=== PATIENT | female | born 1935 | race Caucasian/White ===

== ENCOUNTER → 2016-09-28 | Day surgery (SDC) | payer MEDICARE, OTHER ==
[~2016-09-28] MED LIST: Acetaminophen TAB* 325 MG PO PRN; Buffered Lidocaine 1% SYR 3ML* 3 ML/SYR SYRINGE INTRADERM ONE; Buffered Lidocaine 1% SYR 3ML* 3 ML/SYR SYRINGE ONE; Cyclopentolate 1% OPTH.SOL* 2 ML BTL ONE; Flurbiprofen 0.03% OPTH.SOL* 2.5 ML BTL ONE; Lidocaine 1% MPF* 2 ML VIAL ONE; Midazolam* 1 MG/ML 2 ML VIAL (2 MG) ONE; Neomycin/Polymy/Dex OPHTH.OIN* 3.5 GM ONE; Phenylephrine 2.5% OPTH.SOL* 2 ML BTL ONE; Tetracaine 0.5% OPTH.SOL 4 ML* 1 DROP BTL ONE; Tropicamide 1% OPTH.SOL* BTL ONE; fentaNYL* 50 MCG/ML 2 ML VIAL (100 MCG VIAL) ONE
[2016-09-28 11:18] VITALS: BP 174/59
--- NOTE | 2016-09-29 01:22 | OP ---
DATE OF OPERATION: 09/28/16 [facility] DATE OF : 33 SURGEON: Dr. Nate Murray. AUTOMATIC TYPEWRITER INSPECTOR: None. ANESTHESIOLOGIST: Jeff Garcia MD ANESTHESIA: Topical with intravenous sedation. PRE-OP DIAGNOSIS: Cataract, left eye. POST-OP DIAGNOSIS: Cataract, left eye. OPERATIVE PROCEDURE: Phacoemulsification and cataract extraction with posterior chamber intraocular lens implant, left eye. COMPLICATIONS: None. BLOOD LOSS: None. DESCRIPTION OF PROCEDURE: The patient was brought to the operating room and received a small amount of intravenous sedation. A drop of Tetracaine was placed in her left eye. She was prepped and draped in the usual sterile fashion for ophthalmic surgery and attention was directed to the left eye where a speculum was placed. A paracentesis was created at the 5 o'clock position and 0.1 cc of 1 percent preservative-free Lidocaine was injected into the anterior chamber followed by DisCoVisc. The eye was digitally stabilized while a 2.75 mm keratome was used to create a triplanar clear corneal incision at the 3 o'clock position. A continuous curvilinear capsulorrhexis was created with a cystotome and Utrata forceps. BSS on a cannula was used to hydrodissect the lens from the capsule. Phacoemulsification was performed in a divide-and- conquer technique to create four fragments which were removed. Residual cortical material was removed with irrigation and aspiration. DisCoVisc was used to inflate the capsular bag and an SN60AT 20.5 diopter lens was folded and inserted into the capsular bag. DisCoVisc was removed using irrigation and aspiration. BSS on a cannula was used to hydrate the corneal stroma and seal the wound. At the end of the case the pupil was round and the lens was centered. The eye was of normal pressure and the wound was water tight. The speculum was removed and topical Maxitrol ointment was placed on the surface of the eye. The eye was closed, patched and shielded and the patient was sent to the recovery room in stable condition with post operative instructions and follow-up appointment given. [id number]/CPS #: [id number] MTDD
== END | disposition home or self-care (01) ==
LOC: OREAST 08:46
PROVIDERS: ATTEND Ophthalmology
DX: H25.12 Age-related nuclear cataract, left eye (principal); Z79.84 Long term (current) use of oral hypoglycemic drugs; I10 Essential (primary) hypertension; I11.9 Hypertensive heart disease without heart failure; M19.90 Unspecified osteoarthritis, unspecified site; K21.9 Gastro-esophageal reflux disease without esophagitis; M81.0 Age-related osteoporosis without current pathological fracture; Z79.891 Long term (current) use of opiate analgesic; Z88.8 Allergy status to other drugs, medicaments and biological substances; Z98.41 Cataract extraction status, right eye; Z96.1 Presence of intraocular lens
CPT/HCPCS: A9270-GY; J2250; J3010; V2632

== ENCOUNTER 2019-04-23 16:16 | Inpatient (IN) | payer MEDICARE, OTHER ==
[2019-04-23] MEDS ORDERED: NS 0.9% 1000 ML** 1,000 ML IV ONE ×2 (17:20→19:55)
--- NOTE | 2019-04-23 17:28 | ED ---
Complex/Multi-Sys Presentation - HPI Summary HPI Summary: Patient is a 83 y/o F presenting to ED with complaints of fatigue, nausea, abdominal pain, fever, and "feeling lousy". Patient is a resident of [facility] and is concerned that she "caught the bug" that was going around. Daughter , who is present in the room, notes that a family relation recently developed PNA. Patient was evaluated at [facility] and was noted to have a temp of 102 F. Patient was advised to come to [facility]. In the room, patient denies cough, diarrhea, and vomiting, but, per triage, has been dry heaving. Patient reports "a tad" of sore throat. She states she had a FRIEDMAN which has since resolved. Bilateral ear pain is denied. No dysuria noted. PMHx of diabetes, daughter reports that sugars have been high. Yesterday BG was 270, this morning, it was 247. PMHx of diveritculitis, patient has had 7 inches of colon removed. Hx of pancreatitis. PSHx of appendectomy, tubal ligation, cholecystectomy. Allergy to adhesive tape is reported. Patient states present Sx are dissimilar to her pancreatitis. She is a current non-smoker and does not drink alcohol. - History Of Current Complaint Chief Complaint: EDNauseaVomitDiarrh Time Seen by Provider: 04/23/19 17:02 Hx Obtained From: Patient Onset/Duration: Still Present Timing: Constant Aggravating Factor(s): nothing Alleviating Factor(s): nothing Associated Signs And Symptoms: Positive: Headache, Nausea, Abdominal Pain, Fever , Other - positive - sore throat, fatigue; negative - ear pain. Negative: Cough , Vomiting, Diarrhea, Dysuria - Allergies/Home Medications Allergies/Adverse Reactions: Allergies Allergy/AdvReac Type Severity Reaction Status Date / Time Adhesive Tape Allergy Intermediate ITCHINESS Verified 04/23/19 16:23 Home Medications: Home Medications Cholecalciferol (Vitamin D3) [Vitamin D3] 1,000 unit PO DAILY 04/23/19 [History Confirmed 04/23/19] Fluocinonide 0.05% CREAM(NF) 1 applic TOPICAL BID PRN 04/23/19 [History Confirmed 04/23/19] Hydrocodone/Acetamin 10/325(NF [Meridian 10/325 (NF)] 1 tab PO Q6H PRN 04/23/19 [ History Confirmed 04/23/19] L. Rhamnosus GG/Inulin [Culturelle Probiotics Capsule] 1 cap PO TID 04/23/19 [ History Confirmed 04/23/19] Loperamide HCl [Anti-Diarrheal] 2 mg PO TID PRN 04/23/19 [History Confirmed ] Olmesartan (NF) [Benicar (NF)] 40 mg PO DAILY 04/23/19 [History Confirmed ] Omeprazole (Nf) [Prilosec (NF)] 40 mg PO DAILY 04/23/19 [History Confirmed 04/23] Ondansetron ODT TAB* [Zofran 4 MG Odt TAB*] 4 mg PO Q8H PRN 04/23/19 [History Confirmed 04/23/19] Vitamin B Complex CAP* [B Complex CAP*] 1 cap PO DAILY 04/23/19 [History Confirmed 04/23/19] PMH/Surg Hx/FS Hx/Imm Hx Endocrine/Hematology History: Reports: Hx Diabetes - TYPE II- ON ORAL MEDICATION FOR Cardiovascular History: Reports: Hx Hypertension - ON MEDICATION FOR, Other Cardiovascular Problems/Disorders - HISTORY OF [facility]RYTHMIA'S GI History: Reports: Hx Gastroesophageal Reflux Disease - ON MEDICATION FOR, Hx Hiatal Hernia, Hx Irritable Bowel - after bowel resection and gallstones - has improved with med changes Musculoskeletal History: Reports: Hx Arthritis - OSTEOARTHRITIS- RIGHT SHOULDER , LEFT SHOULDER, Other Musculoskeletal History - OSTEOPOROSIS backs and hips Sensory History: Reports: Hx Cataracts - left eye, Hx Contacts or Glasses - GLASSES Denies: Hx Hearing Aid Opthamlomology History: Reports: Hx Cataracts - left eye, Hx Contacts or Glasses - GLASSES Neurological History: Reports: Hx Nerve Disease - dm neuropathy, Other Neuro Impairments/Disorders - HX OF VERTIGO IN THE PAST- NOW MAYBE ONCE in 3 years Psychiatric History: Reports: Hx Anxiety - ABOUT 30 YEARS AGO, Hx Depression - ABOUT 30 YEARS AGO - Surgical History Surgery Procedure, Year, and Place: TUBAL LIGATION AND [id number]. CHOLECYSTECTOMY-[facility]- FROM PANCREATITIS. BOWEL RESECTION-[facility] [place]. HYSTERECTOMY AND BILATERAL SALPINGOOPHORECTOMY AND CERVIX-[facility] Hx Anesthesia Reactions: No Infectious Disease History: No Infectious Disease History: Denies: Traveled Outside the [place] in Last 30 Days - Family History Known Family History: Positive: Cardiac Disease, Diabetes - Social History Alcohol Use: Rare Substance Use Type: Reports: None Smoking Status (MU): Never Smoked Tobacco Review of Systems Constitutional: Other - positive - "feeling lousy" Positive: Fever, Fatigue Positive: Sore Throat. Negative: Ear Ache Negative: Cough Positive: Abdominal Pain, Nausea. Negative: Vomiting, Diarrhea Negative: dysuria Positive: Headache - since resolbed All Other Systems Reviewed And Are Negative: Yes Physical Exam - Summary Physical Exam Summary: Constitutional: Well-developed, Well-nourished, Alert. (-) Distressed Skin: Warm, Dry HENT: Normocephalic; Atraumatic, Throat Clear Eyes: Conjunctiva normal Neck: Musculoskeletal ROM normal neck. (-) JVD, (-) Stridor, (-) Tracheal deviation Cardio: Rhythm regular, rate normal, Heart sounds normal; Intact distal pulses; The pedal pulses are 2+ and symmetric. Radial pulses are 2+ and symmetric. (-) Murmur Pulmonary/Chest wall: Effort normal. (-) Respiratory distress, (-) Wheezes, (-) Rales Abd: Soft, (+) tenderness over lower abdomen, (-) Distension, (-) Guarding, (-) Rebound Musculoskeletal: (-) Edema Lymph: (-) Cervical adenopathy Neuro: Alert, Oriented x3 Psych: Mood and affect Normal Triage Information Reviewed: Yes Vital Signs On Initial Exam: Initial Vitals Temp Pulse Resp BP Pulse Ox 103.2 F 110 16 130/74 95 04/23/19 16:19 04/23/19 16:19 04/23/19 16:19 04/23/19 16:19 04/23/19 16:19 Vital Signs Reviewed: Yes Diagnostics - Vital Signs Vital Signs Temp Pulse Resp BP Pulse Ox 04/23/19 16:19 103.2 F 110 16 130/74 95 - Laboratory Result Diagrams: 04/23/19 17:49 04/23/19 17:49 Lab Statement: Any lab studies that have been ordered have been reviewed, and results considered in the medical decision making process. - Radiology CXR Radiology Interpretation Completed By: ED Physician Summary of Radiographic Findings: No peribronchial opacities, no segmented PNA, pending official report. Complex Multi-Symp Course/Dx Course Of Treatment: Patient is here with diffuse abdominal pain and fever. Patient has normal WBC and lactate. Platelets low consistent with infecitous etiology. Patient given zosyn epmirically after cultures. CT scan results not received prior to signout. - Diagnoses Provider Diagnoses: Fever, Thrombocytopenia, Tachycardia, Diffuse abdominal pain, Nausea Discharge - Sign-Out/Discharge Documenting (check all that apply): Sign-Out Patient Signing out patient TO: Carlyle Finnegan Patient Received Moderate/Deep Sedation with Procedure: No - Discharge Plan Condition: Stable Referrals: Gabbi Gimenez MD [Primary Care Provider] - - Billing Disposition and Condition Condition: STABLE - Attestation Statements Document Initiated by Martha: Yes Documenting Scribe: CECILY HOWELL Provider For Whom Martha is Documenting (Include Credential): CHINYERE IBANEZ MD Scribe Attestation: CECILY Gregg, scribed for CHINYERE IBANEZ MD on 04/23/19 at 1948. Scribe Documentation Reviewed: Yes Provider Attestation: The documentation as recorded by the CECILY capellan accurately reflects the service I personally performed and the decisions made by , CHINYERE IBANEZ MD Status of Scribe Document: Viewed
[2019-04-23] MEDS ORDERED: Ondansetron INJ* 2 MG/ML VIAL IV ONE (17:58)
[2019-04-23] MEDS ORDERED: Acetaminophen TAB* 325 MG PO ONE (18:05)
[2019-04-23 18:17] LABS: Albumin/Globulin Ratio 1.3 (1-3); BUN/Creatinine Ratio 23.6 (8-20); Calcium 9.1 mg/dL (8.6-10.3); EGFR African American 48.5 (>60); EGFR Non-African American 40.1 (>60); Globulin 3.1 g/dL (2-4); Total Protein 7.1 g/dL (6.4-8.9)
[2019-04-23] MEDS ORDERED: Iodixanol* (CONTRAST) 320 MG/ML 100 ML SDV IV ONE (18:21)
[2019-04-23 18:28] LABS: ABS Lymphocytes 0.2 10^3/ul (1.0-4.8); ABS Monocytes 0.3 10^3/ul (0-0.8); ABS Neutrophils 4.6 10^3/ul (1.5-7.7); Hematocrit 43 % (35-47); Hemoglobin 14.5 g/dL (12.0-16.0); Lymphocyte % 3.5 %; Mean Corpuscular HGB Conc 34 g/dL (31-36); Mean Corpuscular Hemoglobin 30 pg (27-31); Mean Corpuscular Volume 88 fL (80-97); Mean Platelet Volume 10.1 fL (7.4-10.4); Platelet Count 87 10^3/uL (150-450); Red Blood Count 4.86 10^6 /uL (3.70-4.87); Red Cell Distribution Width 14 % (10-15)
[2019-04-23] MEDS ORDERED: Piperacillin/Tazobac ADVAN(*) 3.375 GM in NS 0.9% 100 ML* 100 ML IVPB ONE (18:58)
[2019-04-23] MEDS ORDERED: Insulin REGULAR(*) 1 UNITS UNIT IV PUSH ONE (19:55)
--- NOTE | 2019-04-23 20:11 | ED ---
Progress - Progress Note Progress Note: This pt is a sign out from Dr. No to Dr. Finnegan at shift change [address] A/P. - Results/Orders Results/Orders: CT A/P findings: 1. No acute findings. No evidence of diverticulitis or bowel obstruction. Appendix not visualized, but there is no pericecal inflammatory change to suggest appendicitis. 2. Healing fractures in left ribs 7 through 9, new since prior study but not acute. 3. Large hiatal hernia. 4. Post cholecystectomy and hysterectomy. 5. Other nonemergent findings as above. ED physician has reviewed this report. Re-Evaluation - Re-Evaluation First Eval Re-Evaluation Time: 21:34 Change: Unchanged Comment: Pt was informed of her lab nd CT A/P results. She was also informed about the posibility of admitting to [facility]. She was agreeable. Course/Dx - Course Course Of Treatment: This pt is a sign out from Dr. No to Dr. Finnegan at shift change 189904/23/[address] A/P. Her CT A/P results found the followin. No acute findings. No evidence of diverticulitis or bowel obstruction. Appendix not visualized, but there is no pericecal inflammatory change to suggest appendicitis. 2. Healing fractures in left ribs 7 through 9, new since prior study but not acute. 3. Large hiatal hernia. 4. Post cholecystectomy and hysterectomy. 5. Other nonemergent findings as above. Due to her lab result the pt will be admitted to [facility] by Dr. Lowe, hospitalist, with a Dx of UTI. Dr Lowe called at 2140. - Diagnoses Provider Diagnoses: UTI (urinary tract infection) - Provider Notifications Discussed Care Of Patient With: Barbie Lowe Time Discussed With Above Provider: 21:40 Instructed by Provider To: Admit As Inpatient Discharge - Sign-Out/Discharge Documenting (check all that apply): Patient Departure - admitted, Receiving Sign -Out Receiving patient FROM: Darrell No Patient Received Moderate/Deep Sedation with Procedure: No - Discharge Plan Condition: Stable Disposition: ADMITTED TO [facility] Referrals: Gabbi Gimenez MD [Primary Care Provider] - - Attestation Statements Document Initiated by Scribe: Yes Documenting Scribe: Zeus Leal Provider For Whom Scribe is Documenting (Include Credential): Carlyle Finnegan MD Scribe Attestation: Zeus Gregg, scribed for Carlyle Finnegan MD on 04/23/19 at 2138. Status of Scribe Document: Ready
[2019-04-23 20:54] LABS: Urine Appearance Cloudy; Urine Bacteria Absent (Absent); Urine Bilirubin Negative (Negative); Urine Blood 1+ (Negative); Urine Color Amber; Urine Glucose 3+(>=500 mg/dL) (Negative); Urine Granular Casts Present (Absent); Urine Ketones 1+ (Negative); Urine Nitrite Negative (Negative); Urine Protein 2+(100 mg/dL) (Negative); Urine Red Blood Cell 1+(3-5/hpf) (Absent); Urine Specific Gravity 1.021 (1.010-1.030); Urine Squamous Epithelial Cell Present (Absent); Urine Urobilinogen Negative (Negative); Urine Waxy Casts Present (Absent); Urine White Blood Cell 3+(>20/hpf) (Absent)
[2019-04-23] MEDS ORDERED: Al Hydrox/Mg Hydrox/Simet LIQ* 30 ML UDC PO PRN (22:04)
[2019-04-23] MEDS ORDERED: Dextrose 50% VIAL 50 ml IV PUSH PRN (22:06)
[2019-04-23] MEDS ORDERED: HYDROcodone/ACETAMIN 5-325 MG* 1 TAB PO PRN (22:17)
--- NOTE | 2019-04-23 23:01 | HP ---
HISTORY AND PHYSICAL: ADDENDUM: I went back to talk about a code status with Valentin. She wishes to be a full code [id number]/CPS #: [id number] MTDD
--- NOTE | 2019-04-23 23:18 | HP ---
HISTORY AND PHYSICAL: ADDENDUM NO.1: I went back in to talk with Ms. Hanson about her CT findings. She does not have any soreness in the left chest wall and does not recall any recent falls in the past year. She does think that she hit her left chest against her washing machine about a month ago and did have pain there at that time, but currently has none. She continues to deny cough or sputum; however, she does note that her currently has pneumonia, and she is in and out of [facility] visiting him frequently. Based on this, I will add azithromycin to her antibiotic so that I will treat her with Zithromax and ceftriaxone, and I will check urine antigens for legionella and Streptococcus pneumoniae. I also asked her about outdoor time and exposure to ticks, and she states that she does spend some time outdoors and gardening. ADDENDUM NO.2: I went back to talk about a code status with Ms. Hanson. She wishes to be a full code [id number]/CPS #: [id number]/CPS #: [id number] [facility]
[2019-04-23] MEDS: Acetaminophen TAB* 325 MG PO PRN (23:26)
--- NOTE | 2019-04-23 23:34 | HP ---
TWO ADDENDUMS NOW INCLUDED ON THIS REPORT CC: Radha Wallis NP * HISTORY AND PHYSICAL: DATE OF ADMISSION: 04/23/19 TIME OF ADMISSION: 10 p.m. PRIMARY CARE PHYSICIAN: Radha Wallis NP CHIEF COMPLAINT: Fevers and nausea. HISTORY OF PRESENT ILLNESS: This is an 83-year-old woman with history of diabetes, who presents to the emergency department with 3 days of abdominal discomfort and nausea, it began gradually on Tuesday when she first woke up and she took it easy this weekend, but she noted that she could not eat and she became weak, so she went to her primary care's office today where she was noted to be febrile and was sent to the emergency department for further evaluation. She also notes that at home she felt feverish, but she did not take her temperature. She had no vomiting accompanied with the nausea. She had no diarrhea, though she does have history of chronic diarrhea. She complained of some abdominal bloating. She had no recent travel. She denied a cough. She denied sore throat. She denied changes in her skin or rashes. She denied dysuria or flank pain. PAST MEDICAL HISTORY: Type 2 diabetes, chronic diarrhea, chronic back pain, history of pancreatitis and history of diverticulitis. PAST SURGICAL HISTORY: Shoulder replacement, cholecystectomy, partial colectomy , hysterectomy, tubal ligation, and appendectomy. ALLERGIES: None. FAMILY HISTORY: Both parents have diabetes. SOCIAL HISTORY: She lives alone in [place]. Her has dementia and is in the halfway. She visits him frequently. She does not smoke or use alcohol. REVIEW OF SYSTEMS: As per the HPI. PHYSICAL EXAMINATION GENERAL: Alert, well-appearing elderly lady who is in no distress. She is visiting with her 2 daughters in the room. VITAL SIGNS: Her initial temperature was 103.2, her current temperature is 98.1 ; her initial heart rate was 110, her current heart rate is 83; respiratory rate 17; pulse ox 96% on room air; blood pressure 103/51. HEENT: Pupils are 4 mm bilaterally and reactive to light. Extraocular muscles are intact. She has no nystagmus. Oral mucosa is very dry. Pharynx is unremarkable with no erythema or exudates. NECK: No JVP or adenopathy. CHEST: She is in a regular rate and rhythm with no murmurs. LUNGS: Her lungs are clear bilaterally. ABDOMEN: Soft, nontender, and nondistended in any quadrant. Her liver is not palpable. Her spleen is not palpable and she has no CVA tenderness. EXTREMITIES: No edema, rashes, or ulcers. Her skin is intact. NEUROLOGIC: She is oriented x3. Her strength is 5/5 in upper extremities and 4 +/5 in her lower extremities. Her sensation is intact. Her coordination is intact. DIAGNOSTIC STUDIES/LAB DATA: White blood cells 5.0, hemoglobin 14.5, platelets 87. Sodium 130, potassium 4.0, chloride 94, bicarb 21, anion gap 15, BUN 30, creatinine 1.27, glucose 297. Lactic acid 1.6, ALT 43, AST 67, alk phos 69. Total protein 7.1, lipase 16. Urinalysis; 1+ leukocyte esterase, 3+ white blood cells, nitrites are negative and bacteria is negative. CT abdomen and pelvis: 1. No acute findings. No evidence of diverticulitis or bowel obstruction. Appendix not visualized, but there is no pericecal inflammatory change that suggest appendicitis. 2. Healing fractures in left ribs 7 through 9, new since prior study, but not acute. 3. Large hiatal hernia. 4. Postcholecystectomy and hysterectomy. 5. Other nonemergent findings. Chest x-ray; no effusions, no pneumothorax, no pulmonary edema. ASSESSMENT AND PLAN: This is an 83-year-old female with history of diabetes, who presents to the emergency department with 3 days of fever and nausea and was found to have a negative CT abdomen and pelvis and an equivocal urinalysis. 1. Sepsis. She had a fever and was tachycardic, but her urinalysis does have pyuria, but no nitrites and no bacteria and she does not have classic symptoms of a urinary tract infection nor does she have findings of pyelonephritis; however, she has no other localizing symptoms. Other viral syndromes and tick- borne illnesses are also a consideration and I will add on a tick-borne panel. Blood cultures have been sent in the emergency department and she has received Zosyn. She is hemodynamically stable at this time and I will continue her on maintenance IV fluids. I am putting her on ceftriaxone and we will follow up the micro studies. 2. Thrombocytopenia. This may be related to the sepsis, but may also reflect a tick-borne illness. She had no splenomegaly on her CT abdomen and pelvis. Alternatively, this may be a reflection of a medication side effect. Of note, her platelet count was normal in January 2019. 3. Anion gap metabolic acidosis. She has a normal lactic acid. Her BUN is just mildly elevated. Although, she does have 1+ ketones in her urine, she has no other history of ingestion or other suspicious cause of her anion gap metabolic acidosis. 4. Acute kidney injury. I suspect this is prerenal as she has been unable to eat for the past couple of days. I am continuing her IV fluids. 5. Chronic diarrhea. I am holding her loperamide for now until we have a better understanding of her source of infection. 6. Hypertension. I am holding her ARB. 7. History of chronic pain. Continue hydrocodone p.r.n. 8. Diabetes. Hold the oral medications that she takes at home and put her on sliding scale and fingersticks. 9. DVT prophylaxis: Heparin subcutaneously. 10. Disposition: Admit to OBV. ADDENDUM NO.1: I went back in to talk with Ms. Hanson about her CT findings. She does not have any soreness in the left chest wall and does not recall any recent falls in the past year. She does think that she hit her left chest against her washing machine about a month ago and did have pain there at that time, but currently has none. She continues to deny cough or sputum; however, she does note that her currently has pneumonia, and she is in and out of [facility] visiting him frequently. Based on this, I will add azithromycin to her antibiotic so that I will treat her with Zithromax and ceftriaxone, and I will check urine antigens for legionella and Streptococcus pneumoniae. I also asked her about outdoor time and exposure to ticks, and she states that she does spend some time outdoors and gardening. ADDENDUM NO.2: I went back to talk about a code status with Ms. Hanson. She wishes to be a full code [id number]/CPS #: [id number]/CPS #: [id number]/CPS #: [id number] MTDD
[2019-04-24] MEDS ORDERED: Azithromycin 500 mg/250 mL NS IVPB ONE
[2019-04-24] MEDS: NS 0.9% 1000 ML** 1,000 ML IV SCH ×2 (01:35→11:33)
[2019-04-24] MEDS: Ondansetron INJ* 2 MG/ML VIAL IV PRN ×2 (01:57→19:25)
[2019-04-24] MEDS: Heparin VIAL(*) 5000 UNITS/ML VIAL (FIVE THOUSAND) SUBCUT SCH ×3 (05:32→21:03)
[2019-04-24 06:31] LABS: ABS Lymphocytes 0.1 10^3/ul (1.0-4.8); ABS Monocytes 0.2 10^3/ul (0-0.8); ABS Neutrophils 3.6 10^3/ul (1.5-7.7); Eosinophil % 0.1 %; Hematocrit 38 % (35-47); Hemoglobin 13.1 g/dL (12.0-16.0); Lymphocyte % 3.8 %; Mean Corpuscular HGB Conc 34 g/dL (31-36); Mean Corpuscular Hemoglobin 30 pg (27-31); Mean Corpuscular Volume 88 fL (80-97); Mean Platelet Volume 10.4 fL (7.4-10.4); Platelet Count 59 10^3/uL (150-450); Red Blood Count 4.35 10^6 /uL (3.70-4.87); Red Cell Distribution Width 14 % (10-15); White Blood Count 3.9 10^3/uL (3.5-10.8)
[2019-04-24 06:34] LABS: BUN/Creatinine Ratio 22.9 (8-20); Calcium 7.8 mg/dL (8.6-10.3); EGFR African American 60.4 (>60); EGFR Non-African American 49.9 (>60); Potassium 3.4 mmol/L (3.5-5.0)
[2019-04-24] MEDS ORDERED: Potassium Chlor TAB* 20 MEQ TAB.ER PO ONE (07:29)
[2019-04-24] MEDS: Acetaminophen TAB* 325 MG PO PRN ×2 (07:44→19:24)
[2019-04-24] MEDS: cefTRIAXone(*) 1 GM in NS 0.9% 50 ML* 50 ML IVPB SCH (07:45)
[2019-04-24] MEDS: Insulin LISPRO* 1 UNITS UNIT SUBCUT SCH ×4 (08:24→20:43)
[2019-04-24] MEDS ORDERED: HYDROcodone/ACETAMIN 5-325 MG* 1 TAB PO PRN (15:53)
[2019-04-24 16:26] LABS: Hepatitis C Antibody Negative (Negative)
[2019-04-24 17:41] LABS: Hematocrit 37 % (35-47); Hemoglobin 12.8 g/dL (12.0-16.0); Mean Corpuscular HGB Conc 35 g/dL (31-36); Mean Corpuscular Hemoglobin 31 pg (27-31); Mean Corpuscular Volume 87 fL (80-97); Mean Platelet Volume 10.7 fL (7.4-10.4); Platelet Count 52 10^3/uL (150-450); Red Cell Distribution Width 14 % (10-15); White Blood Count 2.2 10^3/uL (3.5-10.8)
[2019-04-24 19:06] LABS: Hepatitis B Surface Antigen Negative (Negative)
--- NOTE | 2019-04-24 19:18 | PN ---
Subjective Date of Service: 04/24/19 Interval History: Patient denies dysuria, flank pain, abd pain, low back pain. Patient still feels she has a fever today, but feels far improved. She notes she has had nasal congestion since 04/21. Denies cough, dyspnea, chest pain. Objective Active Medications: Acetaminophen (Tylenol Tab*) 650 mg PO Q4H PRN PRN Reason: FEVER/PAIN Hydrocodone Bitart/Acetaminophen ([place] 5-325 Tab*) 1 tab PO Q4H PRN PRN Reason: PAIN Al Hydrox/Mg Hydrox/Simethicone (Maalox Plus*) 30 ml PO Q6H PRN PRN Reason: INDIGESTION Dextrose (Dextrose 50% Vial 50 Ml*) 25 ml IV PUSH .FOR FS < 60 - SS PRN PRN Reason: FS < 60 Heparin Sodium (Porcine) (Heparin Vial(*)) 5,000 units SUBCUT Q8HR [facility] Last Admin: 04/24/19 13:15 Dose: 5,000 units Sodium Chloride (Ns 0.9% 1000 Ml) 1,000 mls @ 125 mls/hr IV PER RATE [facility] Last Admin: 04/24/19 11:33 Dose: 125 mls/hr Ceftriaxone Sodium 1 gm/ (Sodium Chloride) 50 mls @ 100 mls/hr IVPB Q24H [facility] Last Admin: 04/24/19 07:45 Dose: 100 mls/hr Azithromycin (Zithromax 500 Mg/250 Ml) 500 mg in 250 mls @ 250 mls/hr IVPB Q24H [facility] Insulin Human Lispro (Humalog*) 0 units SUBCUT ACHS [facility]; Protocol Last Admin: 04/24/19 17:13 Dose: Not Given Lorazepam (Ativan Tab(*)) 0.5 mg PO BEDTIME PRN PRN Reason: ANXIETY Ondansetron HCl (Zofran Inj*) 4 mg IV Q4H PRN PRN Reason: NAUSEA/VOMITING Last Admin: 04/24/19 01:57 Dose: 4 mg Vital Signs - 8 hr 04/24/19 15:31 Temperature 99.0 F Pulse Rate 86 Respiratory 24 Rate Blood Pressure 124/50 (mmHg) O2 Sat by Pulse 96 Oximetry Oxygen Devices in Use Now: None Appearance: Elderly white female laying in bed appearing in NAD Eyes: PERRLA Ears/Nose/Mouth/Throat: Clear Oropharnyx, Mucous Membranes Moist, - - Nasal turbinates edematous bilaterally Neck: NL Appearance and Movements; NL JVP Respiratory: Symmetrical Chest Expansion and Respiratory Effort, Clear to Auscultation Cardiovascular: NL Sounds; No Murmurs; No JVD, RRR Abdominal: NL Sounds; No Tenderness; No Distention, - - no suprapubic tenderness Extremities: No Edema, No Clubbing, Cyanosis Skin: - - skin warm, dry, intact Neurological: Alert and Oriented x 3, NL Muscle Strength and Tone Result Diagrams: 04/24/19 17:23 04/24/19 06:07 Microbiology and Other Data: Microbiology 04/23/19 17:50 Aerobic Blood Culture - Preliminary Blood Venous No Growth Day 1 04/23/19 17:49 Aerobic Blood Culture - Preliminary Blood Venous No Growth Day 1 Anaerobic Blood Culture - Preliminary No Growth Day 1 04/23/19 22:30 Nasal Screen MRSA (PCR) - Final Nasal Mrsa Not Detected 04/23/19 20:42 Legionella Urinary Antigen - Final Urine Negative Legionella Antigen Streptococcus pneumoniae Ag Screen - Final Negative S. pneumo Antigen Assess/Plan/Problems-Billing Assessment: 83 yo female with PMHx diabetes, chronic diarrhea, and chronic back pain reports with fever of unknown source. - Patient Problems (1) Fever Current Visit: Yes Status: Acute Code(s): R50.9 - FEVER, UNSPECIFIED SNOMED Code(s): 768630216 Comment: -fever and sepsis with unknown origin -fever continued this AM and later improved -urine culture pending (was collected outpatient several hours before reporting to ED), this appears to be likely source as UA is positive -blood cultures negative to date -CXR appears without infiltrate -tick panel and acute hepatitis panel pending -continue ceftiraxone, discontinue azithromycin (2) Thrombocytopenia Current Visit: Yes Status: Acute Code(s): D69.6 - THROMBOCYTOPENIA, UNSPECIFIED SNOMED Code(s): 760171286 Comment: -likely reactive related to infection -continue to trend -will consider heme/onc consult if continues to decrease (3) Diabetes mellitus Current Visit: Yes Status: Acute Code(s): E11.9 - TYPE 2 DIABETES MELLITUS WITHOUT COMPLICATIONS SNOMED Code(s): 03452658 Comment: -takes januvia at home -cont lispro SS while inpatient (4) Hypokalemia Current Visit: Yes Status: Acute Code(s): E87.6 - HYPOKALEMIA SNOMED Code( s): 99792062 Comment: -likely due to large volume of NS -replaced, will recheck tomorrow (5) IFEANYI (acute kidney injury) Current Visit: Yes Status: Acute Code(s): N17.9 - ACUTE KIDNEY FAILURE, UNSPECIFIED SNOMED Code(s): 39792632 Comment: -likely prerenal due to sepsis -resolved today -discontinuing IVF (6) Full code status Current Visit: Yes Status: Acute Code(s): Z78.9 - OTHER SPECIFIED HEALTH STATUS SNOMED Code(s): 457963420 (7) DVT prophylaxis Current Visit: Yes Status: Acute Code(s): Z29.9 - ENCOUNTER FOR PROPHYLACTIC MEASURES, UNSPECIFIED SNOMED Code(s): 738206840 Comment: -heparin -will d/c if platelets fall below 50 Status and Disposition: inpatient pending further workup to evaluate cause of fever
[2019-04-24] MEDS ORDERED: Azithromycin 500 mg/250 ml NS 500 MG/250 ML BAG IVPB SCH (23:00)
[2019-04-25] MEDS: Acetaminophen TAB* 325 MG PO PRN (03:30)
[2019-04-25] MEDS: Heparin VIAL(*) 5000 UNITS/ML VIAL (FIVE THOUSAND) SUBCUT SCH (05:16)
[2019-04-25] MEDS: Insulin LISPRO* 1 UNITS UNIT SUBCUT SCH ×4 (07:36→22:02)
[2019-04-25] MEDS: cefTRIAXone(*) 1 GM in NS 0.9% 50 ML* 50 ML IVPB SCH (07:53)
[2019-04-25 09:13] LABS: Influenza A Molecular NEGATIVE (Negative); Influenza B Molecular NEGATIVE (Negative)
[2019-04-25 09:19] LABS: ABS Lymphocytes 0.3 10^3/ul (1.0-4.8); ABS Monocytes 0.3 10^3/ul (0-0.8); ABS Neutrophils 3.8 10^3/ul (1.5-7.7); Hematocrit 35 % (35-47); Hemoglobin 11.8 g/dL (12.0-16.0); Lymphocyte % 7.3 %; Mean Corpuscular HGB Conc 34 g/dL (31-36); Mean Corpuscular Hemoglobin 30 pg (27-31); Mean Corpuscular Volume 87 fL (80-97); Nucleated Red Blood Cells % 0.2; Platelet Count 48 10^3/uL (150-450); Red Blood Count 3.99 10^6 /uL (3.70-4.87); Red Cell Distribution Width 14 % (10-15); White Blood Count 4.4 10^3/uL (3.5-10.8)
--- NOTE | 2019-04-25 17:15 | PN ---
Subjective Date of Service: 04/25/19 Interval History: Patient reports nausea today and states she has had nausea since admission, though denied yesterday. Feels nausea is worse today. Feels diffuse abdominal discomfort, cannot localize and doesn't describe it as pain. Denies vomiting. Endorses diarrhea, which she has daily at baseline. Believes she has had 3 BMs today. Denies hematochezia. Feels symptomatic fever at time of evaluation. Denies chest pain, difficulty breathing, dysuria. Objective Active Medications: Acetaminophen (Tylenol Tab*) 650 mg PO Q4H PRN PRN Reason: FEVER/PAIN Last Admin: 04/25/19 03:30 Dose: 650 mg Hydrocodone Bitart/Acetaminophen ([place] 5-325 Tab*) 1 tab PO Q4H PRN PRN Reason: PAIN Al Hydrox/Mg Hydrox/Simethicone (Maalox Plus*) 30 ml PO Q6H PRN PRN Reason: INDIGESTION Dextrose (Dextrose 50% Vial 50 Ml*) 25 ml IV PUSH .FOR FS < 60 - SS PRN PRN Reason: FS < 60 Ceftriaxone Sodium 1 gm/ (Sodium Chloride) 50 mls @ 100 mls/hr IVPB Q24H [facility] Last Admin: 04/25/19 07:53 Dose: 100 mls/hr Insulin Human Lispro (Humalog*) 0 units SUBCUT [facility]; Protocol Last Admin: 04/25/19 11:41 Dose: Not Given Lorazepam (Ativan Tab(*)) 0.5 mg PO BEDTIME PRN PRN Reason: ANXIETY Ondansetron HCl (Zofran Inj*) 4 mg IV Q4H PRN PRN Reason: NAUSEA/VOMITING Last Admin: 04/24/19 19:25 Dose: 4 mg Vital Signs - 8 hr 04/25/19 04/25/19 09:54 12:11 Temperature 98.0 F Pulse Rate 84 Respiratory 18 24 Rate Blood Pressure 119/44 (mmHg) O2 Sat by Pulse 96 Oximetry Oxygen Devices in Use Now: None Appearance: elderly white female laying in hospital bed appearing diaphoretic but in NAD Eyes: No Scleral Icterus, PERRLA Ears/Nose/Mouth/Throat: Mucous Membranes Moist, - - no maxillary or frontal sinus tenderness to palpation Neck: NL Appearance and Movements; NL JVP Respiratory: Symmetrical Chest Expansion and Respiratory Effort, Clear to Auscultation Cardiovascular: NL Sounds; No Murmurs; No JVD, RRR Abdominal: - - normoactive BS [id number]; diffusely mildly tender, no rebound tenderness or guarding; abd is soft Extremities: No Edema, No Clubbing, Cyanosis Skin: No Rash or Ulcers, - - no wounds noted after extensive skin check Neurological: Alert and Oriented x 3, NL Muscle Strength and Tone Result Diagrams: 04/25/19 08:21 04/24/19 06:07 Microbiology and Other Data: Microbiology 04/23/19 17:50 Aerobic Blood Culture - Preliminary Blood Venous No Growth Day 1 04/23/19 17:49 Aerobic Blood Culture - Preliminary Blood Venous No Growth Day 1 Anaerobic Blood Culture - Preliminary No Growth Day 1 04/23/19 22:30 Nasal Screen MRSA (PCR) - Final Nasal Mrsa Not Detected 04/23/19 20:42 Legionella Urinary Antigen - Final Urine Negative Legionella Antigen Streptococcus pneumoniae Ag Screen - Final Negative S. pneumo Antigen Assess/Plan/Problems-Billing Assessment: 83 yo female with PMHx diabetes, chronic diarrhea, and chronic back pain reports with fever of unknown source. - Patient Problems (1) Fever Current Visit: Yes Status: Acute Code(s): R50.9 - FEVER, UNSPECIFIED SNOMED Code(s): 677217477 Comment: -fever and sepsis with unknown origin -fever repeated overnight, has been afebrile during the day today but diaphoretic -urine culture was collected outpatient several hours before reporting to ED at PCP office, results today demonstrate negative culture -blood cultures negative to date -CRP elevated to 202.78 -CXR appears without infiltrate, will order chest CT as further described below -acute hepatitis negative, influenza negative -possible other source of infection is sinusitis but this is more likely viral and very low on my differential -tick panel pending -continue ceftiraxone, azithromycin (2) Nausea Current Visit: Yes Status: Acute Code(s): R11.0 - NAUSEA SNOMED Code(s): 083811373 Comment: -pt reports nausea today which is relieved with zofran, associated with abdominal discomfort; continue prn zofran -patient had CT abd/pelvis with PO and IV contrast at admission, does not have evidence of source of infection; hiatal hernia is noted -will order CT chest as perhaps hiatal hernia could cause aspiration pneumonia, which would not be covered by current abx (3) Thrombocytopenia Current Visit: Yes Status: Acute Code(s): D69.6 - THROMBOCYTOPENIA, UNSPECIFIED SNOMED Code(s): 683873445 Comment: -likely reactive related to infection -decreased to 48 today, d/c'd heparin -also with neutropenia overnight, which has resolved this morning; consulted heme/onc nonetheless and appreciate input considering fever of unknown origin (4) Diabetes mellitus Current Visit: Yes Status: Acute Code(s): E11.9 - TYPE 2 DIABETES MELLITUS WITHOUT COMPLICATIONS SNOMED Code(s): 48637627 Comment: -takes januvia at home -cont lispro SS while inpatient (5) IFEANYI (acute kidney injury) Current Visit: Yes Status: Acute Code(s): N17.9 - ACUTE KIDNEY FAILURE, UNSPECIFIED SNOMED Code(s): 69168814 Comment: -likely prerenal due to sepsis -resolved today -discontinuing IVF (6) Full code status Current Visit: Yes Status: Acute Code(s): Z78.9 - OTHER SPECIFIED HEALTH STATUS SNOMED Code(s): 855235857 (7) DVT prophylaxis Current Visit: Yes Status: Acute Code(s): Z29.9 - ENCOUNTER FOR PROPHYLACTIC MEASURES, UNSPECIFIED SNOMED Code(s): 527138713 Comment: -d/c heparin -SCDs Status and Disposition: inpatient pending further workup to evaluate cause of fever
[2019-04-25] MEDS: Ondansetron INJ* 2 MG/ML VIAL IV PRN ×2 (17:20→22:04)
[2019-04-25] MEDS ORDERED: Azithromycin TAB* 250 MG PO SCH (18:00)
[2019-04-25 19:11] LABS: Hematocrit 37 % (35-47); Hemoglobin 12.9 g/dL (12.0-16.0); Mean Corpuscular HGB Conc 35 g/dL (31-36); Mean Corpuscular Hemoglobin 30 pg (27-31); Mean Corpuscular Volume 87 fL (80-97); Mean Platelet Volume 11.8 fL (7.4-10.4); Platelet Count 37 10^3/uL (150-450); Red Blood Count 4.29 10^6 /uL (3.70-4.87); Red Cell Distribution Width 15 % (10-15); White Blood Count 3.9 10^3/uL (3.5-10.8)
[2019-04-25] MEDS: LORazepam TAB(*) 0.5 MG PO PRN (22:03)
[2019-04-26] MEDS: Acetaminophen TAB* 325 MG PO PRN ×2 (02:49→19:33)
--- NOTE | 2019-04-26 03:15 | CONS ---
MEDICAL ONCOLOGY/HEMATOLOGY CONSULTATION NOTE: DATE OF CONSULT: 04/25/19 REASON FOR CONSULT: Thrombocytopenia. HISTORY OF PRESENT ILLNESS: Ashley Hanson is an 83-year-old female who presented to the emergency room after a couple of weeks of feeling more poorly with some intermittent nausea and potentially fever going back over that period of time. She has had somewhat more abdominal bloating. These symptoms worsened on last Tuesday, 2 days prior to admission. She was very weak, had difficulty eating and significant nausea. She did not take her temperature at home, but since arrival at the hospital, has had fevers as high as 102 to 103. There is no associated diarrhea. She denies any cough or shortness of breath. PAST MEDICAL HISTORY: Diabetes mellitus, chronic diarrhea, chronic back pain, history of pancreatitis. PAST SURGICAL HISTORY: Status post shoulder replacement, status post cholecystectomy, status post partial colectomy, status post hysterectomy, status post appendectomy. Shoulder surgery was about 18 months ago. Abdominal surgeries are all at the same time and were approximately 10 years ago. FAMILY HISTORY: Both parents with diabetes. Two daughters with breast cancer. SOCIAL HISTORY: The patient lives alone in [place]. Her had lived with her until fairly recently, but currently is in a custodial with dementia. No alcohol or tobacco. REVIEW OF SYSTEMS: No significant bleeding problems, specifically no epistaxis , gum bleeds, nosebleeds, blood in the urine or stool. No significant petechiae. No significant ecchymosis. PHYSICAL EXAM: Vital Signs: Highest temperature since in the hospital 103.2 on arrival, 102.3 over night last night, currently 99.2. Blood pressure 124/48 , pulse 95, O2 saturation 95% on room air. HEENT: PERRL, EOMI. No erythema or exudates. No scleral icterus. No palpable cervical, supraclavicular, or axillary adenopathy. Lungs: Clear. Heart: 1-2/6 systolic ejection murmur. Abdomen: Soft and nontender with mild bilateral lower quadrant tenderness. No guarding or rebound. No masses or organomegaly. Extremities: No edema. Neurological Exam: Without focal deficits. Back: No CVA or spinal tenderness. DIAGNOSTIC STUDIES/LAB DATA: CBC, currently with white count of 3900 and having been in this range throughout the hospitalization, having been 5000 on admission and similar values concurrent since then other one reported value of 2200 at 7:30 p.m., which was 4400 this morning. Differential includes mostly neutrophils on review of the peripheral smear, no early forms are noted. H and H have been stable at 37/12.9; platelet count on admission was 87,000 falling to 59, 52, and then 48 this morning and at that time of this visit is now reported to be 37. On peripheral smear, there is no giant platelets, there is no platelet clumping. Chemistry studies otherwise sodium 133, potassium 3.4, chloride 102, bicarb 21, BUN/creatinine 24/1.05, glucose 146. Normal LFTs except for the mildly elevated AST at 67 having been normal as recently as January of this year. CT scan of the chest revealed a large hiatal hernia and may be some atelectasis/ small infiltrate at the bases, but no masses, no adenopathy. IMPRESSION AND PLAN: Overall, she feels slightly better than on admission, but still having fevers and still having some nausea. Platelet count has fallen significantly since admission. She did receive heparin and her platelet count was in the 80s on arrival. Then, this was stopped shortly thereafter and she reports not having been hospitalized since her orthopedic surgery 18 months ago and never having had any problems with heparin or other medications, never had any thrombocytopenia. This appears essentially isolated thrombocytopenia. It is not pseudothrombocytopenia as there is no platelet clumping noted. Most likely causes would include potentially: 1. Primary immune thrombocytopenia. 2. A drug-induced thrombocytopenia. This could be due to her antibiotics, although she was already with a low platelet count of 87 on admission. 3. Infection is one of the more common causes of thrombocytopenia even without disseminated intravascular coagulation or sepsis. In addition, hepatic reasons , immunologic reasons, B12 deficiency, alcoholism, and liver via hypersplenism were all fairly common causes of thrombocytopenia. In addition to this, the possibility of primary bone marrow process such as myelodysplasia, paroxysmal nocturnal hemoglobinuria, aplastic anemia, or infiltration of the marrow with a cancer, lymphoma, leukemia need to all be considered. She denies any herbs or supplements, which she could have taken most recently; specifically denies quinine-containing beverages. Workup will include further look into infection, trying to limit any antibiotic that she is on. For completeness sake, a PF4 will be sent, but as noted above, her platelet count was already low prior to starting heparin. She is currently off it and platelet count has continued to fall. Workup for DIC will include D-dimer, fibrinogen, PT, PTT, and a thrombin time. If her platelet count continues to fall, a bone marrow biopsy will be necessary. Suggestion of idiopathic thrombocytopenic purpura would be present if there are adequate to elevated megakaryocytes present, ruling out primary bone marrow process would also be important in the setting of fever of unknown origin. [id number]/[facility] #: [id number] [facility]
[2019-04-26] MEDS: Ondansetron INJ* 2 MG/ML VIAL IV PRN ×2 (03:55→19:33)
[2019-04-26] MEDS ORDERED: NS 0.9% 1000 ML/HR X 1 BAG (TOTAL 1000 ML) IV ONE (05:45)
[2019-04-26] MEDS ORDERED: Vancomycin per Pharmacy* NOTE FOLLOW UP PRN (06:19)
[2019-04-26] MEDS: Cefepime 1 GM in Dextrose(*) 1 GM/50 ML q12h (Duplex) IV SCH ×2 (06:39→18:14)
[2019-04-26] MEDS ORDERED: NS 0.9% 1000 ML** 1,000 ML IV SCH ×2 (06:45→10:30)
[2019-04-26 06:52] LABS: Activated Partial Thrombo Time 29.3 seconds (26.0-38.0); Fibrinogen 289.6 mg/dL (110.8-404.3); INR 0.94 (0.82-1.09)
[2019-04-26 06:57] LABS: ABS Lymphocytes 0.7 10^3/ul (1.0-4.8); ABS Monocytes 0.4 10^3/ul (0-0.8); ABS Neutrophils 4.8 10^3/ul (1.5-7.7); Eosinophil % 0.1 %; Hematocrit 35 % (35-47); Hemoglobin 12.2 g/dL (12.0-16.0); Lymphocyte % 11.7 %; Mean Corpuscular HGB Conc 35 g/dL (31-36); Mean Corpuscular Hemoglobin 30 pg (27-31); Mean Corpuscular Volume 87 fL (80-97); Nucleated Red Blood Cells % 0.1; Red Blood Count 4.04 10^6 /uL (3.70-4.87); Red Cell Distribution Width 14 % (10-15); White Blood Count 5.8 10^3/uL (3.5-10.8)
[2019-04-26] MEDS ORDERED: Vancomycin(*) 1,250 MG IV x ONCE IVPB ONE ×2 (07:00)
[2019-04-26] MEDS ORDERED: NS 0.9% IV ONE (07:00)
[2019-04-26 07:02] LABS: INR 1.02 (0.82-1.09)
[2019-04-26 07:11] LABS: Albumin 2.6 g/dL (3.2-5.2); BUN/Creatinine Ratio 17.1 (8-20); Calcium 7.5 mg/dL (8.6-10.3); EGFR African American 41.3 (>60); EGFR Non-African American 34.1 (>60); Globulin 2.6 g/dL (2-4); Potassium 3.5 mmol/L (3.5-5.0); Total Bilirubin 0.7 mg/dL (0.2-1.0); Total Protein 5.2 g/dL (6.4-8.9)
[2019-04-26 07:25] LABS: Mean Platelet Volume 12.3 fL (7.4-10.4); Platelet Count 40 10^3/uL (150-450)
--- NOTE | 2019-04-26 07:31 | PN ---
Progress Note - Progress Note Date of Service: 04/26/19 Note: CAT call at 0605. Pt found to be hypoxic to 84% on RA. Other vitals being obtained when I arrived and revealed the patient to be tachycardic and hypotensive with a systolic in the 80's. IVF changed from 75ml/hr to 999ml/hr. Code sepsis called (please see separate sepsis documentation). Lab showed and stated they were unable to get all of the labs needed. [employer] [place] present and asked to obtain labs under US and to place a second line. About 10min into the bolus her BP was 65/43. Decision to transfer pt to ICU immediately was made. Attempts were continued to obtain labs BC drawn at just about 45min after the call of code sepsis, cefepime started. Stopped ceftriaxone /azithromycin, start cefepime and vanco for broader coverage. Second set of BC still need to be obtained. pCXR and urinalysis pending. On exam Ashley appeared to be lethargic but she responds to voice, answering questions appropriately and following commands. She is diaphoretic and cool in the extremities. Rectal temp 103.8F. Cardiac exam revealed mild tachycardia and slight irregularity in rhythm. Lungs CTA anteriorly and at the lateral bases. Abd soft, NT, ND; on rolling pt to get temp pt was found to have a dark brown mushy stool. As above, transfer the patient to the ICU, STAT pCXR, UA, vanco and cefepime started. After settling in ICU pt remains hypotensive and clearly in rapid afib. Start levophed at 5mcg/min. Will administer digoxin 0.25mg IVx1 to see if we can slow the rapid afib.
--- NOTE | 2019-04-26 07:32 | PN ---
Sepsis Event Evaluation Date of Evaluation: 04/26/19 Time of Evaluation: 06:05 Current Stage of Sepsis: Septic Shock Vital Signs - Last 12 Hours: Vital Signs - 12 hr Temp Pulse Resp BP Pulse Ox 04/26/19 05:45 103.5 F 160 24 65/43 84 04/26/19 04:06 98.4 F 04/26/19 03:15 102 F 04/26/19 02:43 103.0 F 101 20 149/56 94 04/26/19 00:26 24 04/25/19 22:48 99.1 F 93 24 135/57 95 04/25/19 22:03 24 04/25/19 20:13 98.6 F 04/25/19 20:00 16 Lactic Acid: 04/23/19 04/26/19 17:49 06:45 Lactic Acid 1.6 3.4 H* - Cardiopulmonary Exam Capillary Refill: Immediate Respiratory: Symmetrical Chest Expansion and Respiratory Effort, Clear to Auscultation Cardiovascular: NL Sounds; No Murmurs; No JVD, No Edema, - - irregularly irregular, tachycardic - Peripheral Pulse Exam Radial Pulses: Bilateral Normal - Skin Exam Skin Exam: Diaphoretic - Kris Coma Scale Best Eye Response: 3 - To Speech Best Motor Response: 6 - Obeys Commands Best Verbal Response: 5 - Oriented Coma Scale Total: 14 Assess/Plan/Problems-Billing Assessment: 83 yo female with PMHx diabetes, chronic diarrhea, and chronic back pain reports with fever of unknown source. Status and Disposition: inpatient pending further workup to evaluate cause of fever
[2019-04-26] MEDS ORDERED: Norepinephrine 16MCG/ML IVPRE* 4,000 MCG/250 ML BAG IV SCH (08:00)
[2019-04-26] MEDS: Insulin LISPRO* 1 UNITS UNIT SUBCUT SCH ×4 (08:53→20:49)
[2019-04-26] MEDS ORDERED: Amiodarone 150 MG IVPREMIX* 150 MG/100 ML BAG IV ONE (10:29)
[2019-04-26] MEDS ORDERED: Amiodarone 360 MG IVPREMIX* 360 MG/200 ML BAG IV ONE (10:39)
[2019-04-26 10:56] LABS: Urine Appearance Cloudy; Urine Bacteria Absent (Absent); Urine Bilirubin Negative (Negative); Urine Blood 2+ (Negative); Urine Color Yellow; Urine Glucose 2+(150 mg/dL) (Negative); Urine Ketones 1+ (Negative); Urine Nitrite Negative (Negative); Urine Protein 1+(30 mg/dL) (Negative); Urine Red Blood Cell 3+(>10/hpf) (Absent); Urine Specific Gravity 1.014 (1.010-1.030); Urine Squamous Epithelial Cell Present (Absent); Urine Urobilinogen Negative (Negative); Urine White Blood Cell 1+(6-10/hpf) (Absent)
[2019-04-26] MEDS ORDERED: NS 0.9% w/ 40 Meq KCL 1000 ML* 1,000 ML IV SCH (11:00)
--- NOTE | 2019-04-26 11:01 | CONSULT ---
Consult Consult: Consultation Note -- Critical Care Requesting Physician: Dr Yennifer Javier Reason for consult: severe sepsis Limitations in history/physical: none Date of consult: 04/26/2019 HPI: 83y F w/pmhx of DM, HTN, chronic diarrhea, ?past Afib episode in past, chronic back pain; admitted 04/23 for complaints of nausea and fever in rehab. States she had no abd pain, but only nausea. chronic diarrhea and more watery now. She felt weak+. Family states she gets weak moving around. No swelling in legs or abd, no sig SOB/cp/palpitations. Initial CT abd/pelvis demonstrated no acute findings, CXR withotu pulm congestion. She was admitted with sepsis workup given fever 103, tachycardia 110, BP low 100s. She was given cefepime/ vanco for unclear source of sepsis. This morning 04/26 she was febrile 103, new tachycardia 160s with new afib, BP 60s, given IVF bolus, sepsis protocol started , no resp distress. She is in bed now, BP upper 90s, HR 150s, awake/alert, no distress. Noted LA 3.4 this morning. Moved to ICU but not requiring pressors currently. ROS: negative except for pertinent positives mentioned above. PMHx: DM, HTN, chronic diarrhea, ?past Afib episode in past, chronic back pain PSHx: left shoulder replacement, cholecystectomy, partial colectomy 2/2 to diverticulitus, hysterectomy, appendectomy Family History: DM both parents Social History: Alcohol-none, Smoking-none, Drug use-none; family- in NH for Dementia; she lives by herself and takes care of herself. Allergies: NKDA Home Medications: Glimepiride (NF) 4 mg PO QAM 03/18/15 [History Confirmed 04/23/19] Ibuprofen TAB* [Advil TAB*] 200 mg PO BID PRN 03/18/15 [History Confirmed ] LORazepam TAB(*) [Ativan TAB(*)] 0.5 mg PO BEDTIME PRN 03/18/15 [History Confirmed 04/23/19] SitaGLIPtin (NF) [Januvia (NF)] 100 mg PO QAM 03/18/15 [History Confirmed ] Cholecalciferol (Vitamin D3) [Vitamin D3] 1,000 unit PO DAILY 04/23/19 [History Confirmed 04/23/19] Fluocinonide 0.05% CREAM(NF) 1 applic TOPICAL BID PRN 04/23/19 [History Confirmed 04/23/19] Hydrocodone/Acetamin 10/325(NF [[place] 10/325 (NF)] 1 tab PO Q6H PRN 04/23/19 [ History Confirmed 04/23/19] L. Rhamnosus GG/Inulin [Culturelle Probiotics Capsule] 1 cap PO TID 04/23/19 [ History Confirmed 04/23/19] Loperamide HCl [Anti-Diarrheal] 2 mg PO TID PRN 04/23/19 [History Confirmed ] Olmesartan (NF) [Benicar (NF)] 40 mg PO DAILY 04/23/19 [History Confirmed ] Omeprazole (Nf) [Prilosec (NF)] 40 mg PO DAILY 04/23/19 [History Confirmed 04/23] Ondansetron ODT TAB* [Zofran 4 MG Odt TAB*] 4 mg PO Q8H PRN 04/23/19 [History Confirmed 04/23/19] Vitamin B Complex CAP* [B Complex CAP*] 1 cap PO DAILY 04/23/19 [History Confirmed 04/23/19] Tele: rapid afib Vitals: Vital Signs Temp 101.1 F 04/26/19 08:40 Pulse 164 04/26/19 08:40 Resp 31 04/26/19 08:40 BP 65/43 04/26/19 08:40 Pulse Ox 97 04/26/19 08:40 Intake & Output 04/25/19 04/26/19 04/26/19 18:59 06:59 18:59 Intake Total 925 150 62 Output Total 500 Balance 925 150 -438 Intake: IV Fluids 30 0 62 ABX - AZITHROMYCIN 0 Cefepime 62 Ceftriaxone 0 NS 30 0 IVPB 55 150 ABX - AZITHROMYCIN 0 Ceftriaxone 55 0 NS 150 Oral 840 0 Output: Maguire 500 Other: Estimated Void Large Date of Last Bowel [id number] Movement # Bowel Movements 2 1 Estimated Stool Amount Large Medium # Voids 3 O2/Vent: RA Infusions: NS Current Medications: Acetaminophen (Tylenol Tab*) 650 mg PO Q4H PRN PRN Reason: FEVER/PAIN Last Admin: 04/26/19 02:49 Dose: 650 mg Hydrocodone Bitart/Acetaminophen ([place] 5-325 Tab*) 1 tab PO Q4H PRN PRN Reason: PAIN Al Hydrox/Mg Hydrox/Simethicone (Maalox Plus*) 30 ml PO Q6H PRN PRN Reason: INDIGESTION Dextrose (Dextrose 50% Vial 50 Ml*) 25 ml IV PUSH .FOR FS < 60 - SS PRN PRN Reason: FS < 60 Cefepime HCl (Maxipime 1 Gm In Dextrose Duplex (*)) 1 gm in 50 mls @ 100 mls/ hr IV Q12H JOSE Last Admin: 04/26/19 06:39 Dose: 100 mls/hr Norepinephrine Bitartrate (Levophed 16 Mcg/Ml Premix*) 4,000 mcg in 250 mls @ 18.75 mls/hr IV .INITIAL RATE JOSE; Protocol Vancomycin HCl 750 mg/ Sodium (Chloride) 250 mls @ 166.667 mls/hr IVPB Q12H JOSE Potassium Chloride/Sodium Chloride (Ns 0.9% W/ 40 Meq Kcl 1000 Ml*) 1,000 mls @ 75 mls/hr IV PER RATE JOSE Amiodarone HCl (Nexterone Drip*) 150 mg in 100 mls @ 600 mls/hr IV ONCE ONE Stop: 04/26/19 10:38 Amiodarone HCl (Nexterone 360 Mg/200 Ml Ivpremix*) 360 mg in 200 mls @ 33.333 mls/hr IV ONCE ONE Stop: 04/26/19 16:28 Amiodarone HCl (Nexterone 360 Mg/200 Ml Ivpremix*) 360 mg in 200 mls @ 16.667 mls/hr IV .SEE PROTOCOL JOSE Insulin Human Lispro (Humalog*) 0 units SUBCUT ACHS JOSE; Protocol Last Admin: 04/26/19 08:53 Dose: 2 units Lorazepam (Ativan Tab(*)) 0.5 mg PO BEDTIME PRN PRN Reason: ANXIETY Last Admin: 04/25/19 22:03 Dose: 0.5 mg Ondansetron HCl (Zofran Inj*) 4 mg IV Q4H PRN PRN Reason: NAUSEA/VOMITING Last Admin: 04/26/19 03:55 Dose: 4 mg Pharmacy Consult (Vancomycin Per Pharmacy*) 1 note FOLLOW UP . PRN PRN Reason: PER PROTOCOL Pharmacy Profile Note (Vancomycin Trough Check) 1 note FOLLOW UP ONCE ONE Stop: 04/27/19 07:31 Physical Exam: Constitutional: awake, alert, no distress, no diaphoresis Head: normocephalic, atraumatic Eyes: no pallor, no icterus ENT: moist mucous membranes Neck: soft, supple, no jvd, no stridor CVS: normal rate, regular, + murmur Resp: bilateral air entry, + rhales, no wheeze, no rhonchi, no acc muscle use Abdomen/GI: soft, nontender, nondistended, BS+ Ext/Msk: warm, pulses+, no edema Skin: intact, warm Neuro: awake, alert, orientedx3, moving all extremities Labs: Laboratory Results - last 24 hr 04/25/19 04/25/19 04/25/19 08:21 11:36 17:14 WBC RBC Hgb Hct MCV MCH MCHC RDW Plt Count MPV Neut % (Auto) Lymph % (Auto) [place] % (Auto) Eos % (Auto) Baso % (Auto) Absolute Neuts (auto) Absolute Lymphs (auto) Absolute Monos (auto) Absolute Eos (auto) Absolute Basos (auto) Absolute Nucleated RBC Nucleated RBC % ESR 23 INR (Anticoag Therapy) APTT Fibrinogen D-Dimer, Quantitative Sodium Potassium Chloride Carbon Dioxide Anion Gap BUN Creatinine Est GFR ( Amer) Est GFR (Non-Af Amer) BUN/Creatinine Ratio Glucose POC Glucose (mg/dL) 124 H 119 H Lactic Acid Calcium Total Bilirubin AST ALT Alkaline Phosphatase Total Protein Albumin Globulin Albumin/Globulin Ratio 04/25/19 04/25/19 04/26/19 18:37 20:17 05:55 WBC 3.9 RBC 4.29 Hgb 12.9 Hct 37 MCV 87 MCH 30 MCHC 35 RDW 15 Plt Count 37 L MPV 11.8 H Neut % (Auto) Lymph % (Auto) [place] % (Auto) Eos % (Auto) Baso % (Auto) Absolute Neuts (auto) Absolute Lymphs (auto) Absolute Monos (auto) Absolute Eos (auto) Absolute Basos (auto) Absolute Nucleated RBC Nucleated RBC % ESR INR (Anticoag Therapy) 0.94 APTT 29.3 Fibrinogen 289.6 D-Dimer, Quantitative > 1050 H Sodium Potassium Chloride Carbon Dioxide Anion Gap BUN Creatinine Est GFR ( Amer) Est GFR (Non-Af Amer) BUN/Creatinine Ratio Glucose POC Glucose (mg/dL) 189 H Lactic Acid Calcium Total Bilirubin AST ALT Alkaline Phosphatase Total Protein Albumin Globulin Albumin/Globulin Ratio 04/26/19 04/26/19 04/26/19 06:08 06:45 06:45 WBC 5.8 RBC 4.04 Hgb 12.2 Hct 35 MCV 87 MCH 30 MCHC 35 RDW 14 Plt Count 40 L MPV 12.3 H Neut % (Auto) 82.1 Lymph % (Auto) 11.7 [place] % (Auto) 6.0 Eos % (Auto) 0.1 Baso % (Auto) 0.1 Absolute Neuts (auto) 4.8 Absolute Lymphs (auto) 0.7 L Absolute Monos (auto) 0.4 Absolute Eos (auto) 0.0 Absolute Basos (auto) 0.0 Absolute Nucleated RBC 0.0 Nucleated RBC % 0.1 ESR INR (Anticoag Therapy) 1.02 APTT Fibrinogen D-Dimer, Quantitative Sodium Potassium Chloride Carbon Dioxide Anion Gap BUN Creatinine Est GFR ( Amer) Est GFR (Non-Af Amer) BUN/Creatinine Ratio Glucose POC Glucose (mg/dL) 255 H Lactic Acid Calcium Total Bilirubin AST ALT Alkaline Phosphatase Total Protein Albumin Globulin Albumin/Globulin Ratio 04/26/19 04/26/19 06:45 06:45 WBC RBC Hgb Hct MCV MCH MCHC RDW Plt Count MPV Neut % (Auto) Lymph % (Auto) [place] % (Auto) Eos % (Auto) Baso % (Auto) Absolute Neuts (auto) Absolute Lymphs (auto) Absolute Monos (auto) Absolute Eos (auto) Absolute Basos (auto) Absolute Nucleated RBC Nucleated RBC % ESR INR (Anticoag Therapy) APTT Fibrinogen D-Dimer, Quantitative Sodium 131 L Potassium 3.5 Chloride 101 Carbon Dioxide 15 L Anion Gap 15 H BUN 25 H Creatinine 1.46 H Est GFR ( Amer) 41.3 Est GFR (Non-Af Amer) 34.1 BUN/Creatinine Ratio 17.1 Glucose 241 H POC Glucose (mg/dL) Lactic Acid 3.4 H* Calcium 7.5 L Total Bilirubin 0.70 AST 59 H ALT 46 Alkaline Phosphatase 101 Total Protein 5.2 L Albumin 2.6 L Globulin 2.6 Albumin/Globulin Ratio 1.0 Imaging: CXR 04/26 - bilateral pulm congestion+ CT chest 04/23 - hiatal hernia+, small left lower lobe basal atelectasis vs consolidation Assessment: 83y F w/pmhx of DM, HTN, chronic diarrhea, ?past Afib episode in past, chronic back pain; admitted 04/23 for complaints of nausea and fever in rehab. States she had no abd pain, but only nausea. chronic diarrhea and more watery now. She felt weak+. Family states she gets weak moving around. No swelling in legs or abd, no sig SOB/cp/palpitations. Initial CT abd/pelvis demonstrated no acute findings, CXR withotu pulm congestion. She was admitted with sepsis workup given fever 103, tachycardia 110, BP low 100s. She was given cefepime/vanco for unclear source of sepsis. This morning 04/26 she was febrile 103, new tachycardia 160s with new afib, BP 60s, given IVF bolus, sepsis protocol started, no resp distress. She is in bed now, BP upper 90s, HR 150s, awake/alert, no distress. Noted LA 3.4 this morning. -Severe Sepsis; unclear source, possible LLL pneumonia -New onset Afib with RVR -Hypotension -Hyperlactatemia; 2/2 to rapid afib vs sepsis -thrombocytopenia -IFEANYI -metabolic acidosis chronic diarrhea Plan: Neuro- -awake/alert -Delirium prec; avoid BDZ CVS- -new onset rapid afib; BP labile; start amio bolus/infusion -bridge to metoprolol/CCB once BP improved ; will avoid fpc amio -likely afib ppt'ed by fever/sepsis -hypotension improved with IVF bolus; last BP upper 90s; levophed on backup but not required at this time -LA elevated, trend LA now -CXR 04/26 with pulm congestion -will need Lasix once BP stabilized -TTE to eval for valvular disease/LV function -Titrate Pressors to Maintain MAP>65 Resp- -RA; no distress -CXR 04/26 with congestion -hold further IVF; lasix once BP stabilized -IV abx for ?LLL pneumonia/infiltrate -Wean Fio2 to keep sat>92% -Bronchodilators PRN, Aspiration prec ID- febrile 103, WBC normal. LA elevated now 2/2 to hypoperfusion -Cefepime (day#1), vanco (day#1) for empiric coverage -blood cx 04/23 neg; repeat cultures sent this morning 04/26 -leg/strept ag neg -check c.diff given diarrhea more watery,fevers, nausea and being in rehab -contact precautions for now GI- -chronic diarrhea; workup in past negative -cont loperamide -abd exam benign -IVF PRN -antiemetics -check c.diff; stool cx in process -Nutrition: diabetic diet -GI prophylaxis Renal- -IFEANYI; may be from hypovolemia and now sepsis and hypoperfusion -IVF 2 L given; hold furhter -replete KCL po -CXR with congestion; once BP stable, will trial lasix 20mg or 40mg IV -strict I/O, replete to keep K>4, Mg>2 -maguire as indicated Heme- hg stable 12 -thrombocytopenia new; no bleeding; not on AC; workup by heme being sent -DVT proph with SCD only Endo- Maintain BG<200, insulin protocol as needed Musculsk- pressure ulcer prophylaxis. oob to chair Wounds- none Nutrition- diabetic diet DVT prophylaxis: SCD only; no chem due to low plt GI prophylaxis: none Central Line: PICC today? Arterial Line: no Maguire Cathetor: no Disposition: Patient requires Critical Care/ICU for severe sepsis Patient Clinical Status: guarded Code Status: full code Total Critical Care time is 40 minutes, excluding procedures/teaching Tony Connolly MD [employer] (Electronically Signed)
[2019-04-26] MEDS: Potassium Chloride* LIQUID 20 MEQ/15 ML UDC PO SCH ×2 (12:18→20:53)
--- NOTE | 2019-04-26 16:20 | ECHO ---
*[facility]* [place] [address] Fax #: [phone] Transthoracic Echocardiogram Patient: Ashley Hanson : 1935 Study Date: 04/26/2019 Age: 83 Gender: F HR: 127 bpm Height: 64 in /162.6 cm BSA: 1.76 m^2 Weight: 156.7 lb /71.2 kg BMI: 26.9 kg/m^2 *Bread Racker: Lidya Martin [facility] *Referring Physician: Tony Jane *Reading Physician: * Karlo Araujo MD Indications: SOB. Atrial Fibrillation. Hypotension. History: Risk factors: Diabetes mellitus. Conclusions Summary: - Left ventricle: The cavity size is mildly reduced. Wall thickness is normal. Systolic function is hyperdynamic. The estimated ejection fraction is 70-75%. Wall motion is normal; there are no regional wall motion abnormalities. - Right ventricle: The cavity size is normal. Systolic function is normal. - Left atrium: The atrium is normal in size. - Tricuspid valve: There is mild regurgitation. - Pulmonary arteries: Systolic pressure is within the normal range. Recommendations: None prior for comparison. Study data: Transthoracic echocardiogram. Procedure: Transthoracic echocardiography was performed. Image quality was fair. Complete 2D, spectral Doppler, and color flow Doppler. Location: ICU Patient status: Inpatient. Patient room number: 9. Rhythm: Atrial fibrillation. Findings Left ventricle: The cavity size is mildly reduced. Wall thickness is normal. Systolic function is hyperdynamic. The estimated ejection fraction is 70-75%. Wall motion is normal; there are no regional wall motion abnormalities. Left ventricular diastolic function parameters are indeterminate. Right ventricle: The cavity size is normal. Systolic function is normal. Left atrium: The atrium is normal in size. Right atrium: The atrium is normal in size. Mitral valve: Mitral annulus is mildly calcified. The leaflets are mildly thickened. There is no evidence of stenosis. There is mild regurgitation. Aortic valve: The leaflets are mildly thickened. There is no evidence of stenosis. There is no significant regurgitation. Tricuspid valve: The leaflets are normal thickness. There is no evidence of stenosis. There is mild regurgitation. Pulmonic valve: Not well visualized. There is no significant regurgitation. Aorta: Aortic root: The aortic root is appears normal. Ascending aorta: The ascending aorta is poorly visualized. Aortic arch: The aortic arch is appears normal. Pericardium: There is no significant pericardial effusion. Pulmonary arteries: Not well visualized. Systolic pressure is within the normal range. Systemic veins: Inferior vena cava: The vessel is dilated. There is (>= 50%) respiratory change in the IVC dimension. Measurements Left ventricle Value Ref Aortic valve Value Ref JOLYNN, LAX (L) 3.7 cm 3.8 - 5.2 Josephine diam, ED 2.0 cm ----- ESD, LAX 2.7 cm 2.2 - 3.5 Peak v, S 1.53 m/sec ----- FS, LAX 28 % 27 - 45 Peak grad, S 9.0 mm Hg ----- PW, ED, LAX (H) 1.0 cm 0.6 - 0.9 EF 55 % 54 - 74 Mitral valve Value Ref E', lat josephine, TDI (L) 8.9 cm/sec >=10.0 Peak E 1.08 m/sec --- -- E/e', lat josephine, 12 Decel time 134 ms ----- TDI PHT 80 ms ----- Mean grad, D 3.0 mm Hg ----- LVOT Value Ref Peak grad, D 5.0 mm Hg ----- Peak angie, S 0.74 m/sec MVA, PHT 4.5 cm^2 ----- Ventricular septum Value Ref Tricuspid valve Value Ref IVS, ED 0.9 cm 0.6 - 0.9 TR peak v 2.4 m/sec <=2.8 Peak RV-RA grad, S 23 mm Hg ----- Right ventricle Value Ref JOLYNN, LAX 1.9 cm Aortic root Value Ref JOLYNN minor ax, A4C 2.6 cm 1.9 - 3.5 Root diam 2.7 cm <4.0 mid Pressure, S 31 mm Hg Aortic arch Value Ref Arch diam 2.8 cm ----- Left atrium Value Ref AP dim, ES (H) 4.10 cm 2.70 - Decending aorta Value Ref 3.80 Conor peak angie 0.56 m/sec ----- ML dim, A4C 4.5 cm SI dim, A4C 5.4 cm Pulmonary artery Value Ref Vol/bsa, ES, A/L 29 ml/m^2 16 - 34 Pressure, S 31.0 mm Hg ----- Right atrium Value Ref Inferior vena cava Value Ref SI dim, ES 5.0 cm 3.4 - 5.3 Diam 2.3 cm ----- ML dim, ES, A4C 3.8 cm 2.6 - 4.4 Estimated RAP 8 mm Hg Legend: (L) and (H) melo values outside specified reference range. Prepared and electronically signed by Karlo Araujo MD 04/26/2019 16:19
[2019-04-26] MEDS: Amiodarone 360 MG IVPREMIX* 360 MG/200 ML BAG IV SCH (17:17)
[2019-04-26 18:46] LABS: Anaplasma phagocytophilum Positive (Negative); B. miyamotoi PCR, B Negative (Negative); Babesia divergens/MO-1 Negative (Negative); Babesia ducani Negative (Negative); Ehrlichia chaffeensis Negative (Negative); Ehrlichia ewingii/canis Negative (Negative); Ehrlichia muris eauclairensis Negative (Negative)
[2019-04-26] MEDS: Vancomycin(*) 750 MG in NS 0.9% 250 ML* 250 ML IVPB SCH (20:48)
[2019-04-26] MEDS ORDERED: Zinc Oxide 16% PASTE* (Butt Paste) 1 TUBE TOPICAL SCH (21:00)
[2019-04-26] MEDS: Loperamide CAP* 2 MG PO PRN ×2 (22:09→23:45)
[2019-04-26] MEDS: DOXYcycline IV* 100 MG in NS 0.9% 250 ML* 250 ML IVPB SCH (22:38)
[2019-04-27] MEDS ORDERED: NS 0.9% 1000 ML** 1,000 ML IV SCH (01:30)
[2019-04-27] MEDS ORDERED: NS 0.9% 1000 ML/HR X 1 BAG (TOTAL 1000 ML) IV ONE (01:30)
[2019-04-27] MEDS: LORazepam TAB(*) 0.5 MG PO PRN (01:31)
[2019-04-27] MEDS: Amiodarone 360 MG IVPREMIX* 360 MG/200 ML BAG IV SCH (03:59)
[2019-04-27] MEDS: Acetaminophen TAB* 325 MG PO PRN (05:12)
[2019-04-27] MEDS: Cefepime 1 GM in Dextrose(*) 1 GM/50 ML q12h (Duplex) IV SCH ×2 (06:32→19:54)
[2019-04-27 06:57] LABS: Hematocrit 31 % (35-47); Hemoglobin 10.6 g/dL (12.0-16.0); Mean Corpuscular HGB Conc 35 g/dL (31-36); Mean Corpuscular Hemoglobin 31 pg (27-31); Mean Corpuscular Volume 88 fL (80-97); Mean Platelet Volume 11.6 fL (7.4-10.4); Platelet Count 37 10^3/uL (150-450); Red Blood Count 3.47 10^6 /uL (3.70-4.87); Red Cell Distribution Width 15 % (10-15); White Blood Count 6.6 10^3/uL (3.5-10.8)
[2019-04-27 07:21] LABS: BUN/Creatinine Ratio 20.7 (8-20); Calcium 6.9 mg/dL (8.6-10.3); EGFR African American 56.7 (>60); EGFR Non-African American 46.8 (>60); Magnesium 1.7 mg/dL (1.9-2.7); Phosphorus 1.1 mg/dL (2.5-5.0); Potassium 3.4 mmol/L (3.5-5.0)
[2019-04-27] MEDS ORDERED: Vancomycin Trough Check NOTE FOLLOW UP ONE (07:30)
[2019-04-27] MEDS: Vancomycin(*) 750 MG in NS 0.9% 250 ML* 250 ML IVPB SCH ×2 (08:07→21:07)
[2019-04-27] MEDS: Insulin LISPRO* 1 UNITS UNIT SUBCUT SCH ×4 (08:07→21:54)
[2019-04-27] MEDS ORDERED: Magnesium Sulfate 2 GM IV* 2 GM/50 ML BAG IVPB ONE (08:57)
[2019-04-27] MEDS: DOXYcycline IV* 100 MG in NS 0.9% 250 ML* 250 ML IVPB SCH ×2 (09:08→23:21)
[2019-04-27] MEDS ORDERED: Potassium Phosphate IV* 30 MMOLE in NS 0.9% 250 ML* 250 ML IVPB ONE (09:30)
[2019-04-27] MEDS: Sodium Bicarbonate 8.4% IV* 150 MEQ in D5W 1000 ML BAG* 850 ML IV SCH (10:14)
--- NOTE | 2019-04-27 12:08 | PN ---
Progress Note - Progress Note Date of Service: 04/27/19 Note: Progress Note -- Critical Care Note was written on 04/27 but I had forgotten to sign note for 04/27 and finalize. Signed 8/3 AM 24 hour events -overnight febrile 101; dropped bp and given IVF bolus and started on levophed but now weaned off -awake, alert, no distress, eating -family at bedside Tele: Afib, rate conrolled Vitals: Vital Signs Temp 99.3 F 04/27/19 11:15 Pulse 73 04/27/19 11:15 Resp 33 04/27/19 11:15 BP 121/64 04/27/19 11:15 Pulse Ox 96 04/27/19 11:15 Intake & Output 04/26/19 04/27/19 04/27/19 18:59 06:59 18:59 Intake Total 2712 2005 582.7 Output Total 840 590 405 Balance 1872 1415 177.7 Weight 70 kg Intake: IV Fluids 2237 1232 265 Cefepime 62 NS 2175 1232 265 IVPB 275 602 269 ABX - DOXYCYCLINE 267 ABX - VANCOMYCIN 270 269 Cefepime 65 NS 275 Medicated IV 171 48.7 CC - Amiodarone 171 CC - Norepinephrine/ 48.7 Levophed Oral 200 Output: Maguire 840 590 405 O2/Vent: RA Infusions: bicarb infusion Current Medications: Acetaminophen (Tylenol Tab*) 650 mg PO Q4H PRN PRN Reason: FEVER/PAIN Last Admin: 04/27/19 05:12 Dose: 650 mg Hydrocodone Bitart/Acetaminophen ([place] 5-325 Tab*) 1 tab PO Q4H PRN PRN Reason: PAIN Al Hydrox/Mg Hydrox/Simethicone (Maalox Plus*) 30 ml PO Q6H PRN PRN Reason: INDIGESTION Last Admin: 04/26/19 20:53 Dose: 30 ml Dextrose (Dextrose 50% Vial 50 Ml*) 25 ml IV PUSH .FOR FS < 60 - SS PRN PRN Reason: FS < 60 Heparin Sodium (Porcine) (Heparin Flush Picc/Ml/Cvc(*)) 1 - 3 ml FLUSH 0600, 1800 [facility]; Protocol Last Admin: 04/27/19 06:06 Dose: Not Given Cefepime HCl (Maxipime 1 Gm In Dextrose Duplex (*)) 1 gm in 50 mls @ 100 mls/ hr IV Q12H [facility] Last Admin: 04/27/19 06:32 Dose: 100 mls/hr Norepinephrine Bitartrate (Levophed 16 Mcg/Ml Premix*) 4,000 mcg in 250 mls @ 18.75 mls/hr IV .INITIAL RATE [facility]; Protocol Last Admin: 04/27/19 06:44 Dose: 18.75 mls/hr Vancomycin HCl 750 mg/ Sodium (Chloride) 250 mls @ 166.667 mls/hr IVPB Q12H [facility] Last Admin: 04/27/19 08:07 Dose: 166.667 mls/hr Amiodarone HCl (Nexterone 360 Mg/200 Ml Ivpremix*) 360 mg in 200 mls @ 16.667 mls/hr IV Q12H [facility] Stop: 04/27/19 16:38 Last Admin: 04/27/19 03:59 Dose: Not Given Doxycycline Hyclate 100 mg/ (Sodium Chloride) 250 mls @ 250 mls/hr IVPB Q12H [facility] Last Admin: 04/27/19 09:08 Dose: 250 mls/hr Sodium Bicarbonate 150 meq/ (Dextrose) 1,000 mls @ 75 mls/hr IV Q13H [facility] Last Admin: 04/27/19 10:14 Dose: 75 mls/hr Potassium Phosphate 30 mmole/ (Sodium Chloride) 260 mls @ 42 mls/hr IVPB ONCE ONE Stop: 04/27/19 15:41 Last Admin: 04/27/19 10:30 Dose: 42 mls/hr Insulin Human Lispro (Humalog*) 0 units SUBCUT ACHS [facility]; Protocol Last Admin: 04/27/19 08:07 Dose: 1 units Loperamide HCl (Imodium Cap*) 2 mg PO .SEE DIRECTIONS PRN PRN Reason: DIARRHEA Last Admin: 04/26/19 23:45 Dose: 2 mg Lorazepam (Ativan Tab(*)) 0.5 mg PO BEDTIME PRN PRN Reason: ANXIETY Last Admin: 04/27/19 01:31 Dose: 0.5 mg Ondansetron HCl (Zofran Inj*) 4 mg IV Q4H PRN PRN Reason: NAUSEA/VOMITING Last Admin: 04/26/19 19:33 Dose: 4 mg Pharmacy Consult (Vancomycin Per Pharmacy*) 1 note FOLLOW UP . PRN PRN Reason: PER PROTOCOL Zinc Oxide (Martinez's Butt Paste) 1 applic TOPICAL .AFTER EACH BM [facility] Last Admin: 04/26/19 21:52 Dose: 1 applic Physical Exam: Constitutional: awake, alert, no distress, no diaphoresis Head: normocephalic, atraumatic Eyes: no pallor, no icterus ENT: moist mucous membranes Neck: soft, supple, no jvd, no stridor CVS: normal rate, regular, + murmur Resp: bilateral air entry, minimal basal crackles, no wheeze, no rhonchi, no acc muscle use Abdomen/GI: soft, nontender, nondistended, BS+ Ext/Msk: warm, pulses+, no edema Skin: intact, warm Neuro: awake, alert, orientedx3, moving all extremities Labs: Laboratory Results - last 24 hr 04/23/19 04/26/19 04/26/19 17:49 12:15 12:32 WBC RBC Hgb Hct MCV MCH MCHC RDW Plt Count MPV Sodium Potassium Chloride Carbon Dioxide Anion Gap BUN Creatinine Est GFR ( Amer) Est GFR (Non-Af Amer) BUN/Creatinine Ratio Glucose POC Glucose (mg/dL) 266 H Lactic Acid 1.6 Calcium Phosphorus Magnesium Anaplasma DNA (PCR) Positive A* B. divergens/MO-1 PCR Negative Babesia duncani DNA PCR Negative Babesia microti DNA PCR Negative Borrelia miyamotoi (PCR) Negative E.chaffeensis DNA (PCR) Negative E. ewingii/canis (PCR) Negative E. muris-like DNA (PCR) Negative 04/26/19 04/26/19 04/26/19 17:41 17:53 20:30 WBC RBC Hgb Hct MCV MCH MCHC RDW Plt Count MPV Sodium Potassium Chloride Carbon Dioxide Anion Gap BUN Creatinine Est GFR ( Amer) Est GFR (Non-Af Amer) BUN/Creatinine Ratio Glucose POC Glucose (mg/dL) 170 H 201 H Lactic Acid 1.5 Calcium Phosphorus Magnesium Anaplasma DNA (PCR) B. divergens/MO-1 PCR Babesia duncani DNA PCR Babesia microti DNA PCR Borrelia miyamotoi (PCR) E.chaffeensis DNA (PCR) E. ewingii/canis (PCR) E. muris-like DNA (PCR) 04/27/19 04/27/19 06:39 06:39 WBC 6.6 RBC 3.47 L Hgb 10.6 L Hct 31 L MCV 88 MCH 31 MCHC 35 RDW 15 Plt Count 37 L MPV 11.6 H Sodium 132 L Potassium 3.4 L Chloride 109 Carbon Dioxide 16 L Anion Gap 7 BUN 23 Creatinine 1.11 H Est GFR ( Amer) 56.7 Est GFR (Non-Af Amer) 46.8 BUN/Creatinine Ratio 20.7 H Glucose 179 H POC Glucose (mg/dL) Lactic Acid Calcium 6.9 L Phosphorus 1.1 L Magnesium 1.7 L Anaplasma DNA (PCR) B. divergens/MO-1 PCR Babesia duncani DNA PCR Babesia microti DNA PCR Borrelia miyamotoi (PCR) E.chaffeensis DNA (PCR) E. ewingii/canis (PCR) E. muris-like DNA (PCR) Imaging: CXR 04/26 - bilateral pulm congestion+ CT chest 04/23 - hiatal hernia+, small left lower lobe basal atelectasis vs consolidation Assessment: 83y F w/pmhx of DM, HTN, chronic diarrhea, ?past Afib episode in past, chronic back pain; admitted 04/23 for complaints of nausea and fever in rehab. States she had no abd pain, but only nausea. chronic diarrhea and more watery now. She felt weak+. Family states she gets weak moving around. No swelling in legs or abd, no sig SOB/cp/palpitations. Initial CT abd/pelvis demonstrated no acute findings, CXR withotu pulm congestion. She was admitted with sepsis workup given fever 103, tachycardia 110, BP low 100s. She was given cefepime/vanco for unclear source of sepsis. This morning 04/26 she was febrile 103, new tachycardia 160s with new afib, BP 60s, given IVF bolus, sepsis protocol started, no resp distress. She is in bed now, BP upper 90s, HR 150s, awake/alert, no distress. Noted LA 3.4 this morning. -Severe Sepsis; unclear source, possible LLL pneumonia -anaplasmosis+ PCR -New onset Afib with RVR -Hypotension -Hyperlactatemia; 2/2 to rapid afib vs sepsis -thrombocytopenia -IFEANYI -metabolic acidosis -hyponatremia chronic diarrhea Plan: Neuro- -awake/alert -Delirium prec; avoid BDZ CVS- -Afib, now rate controlled; on Amio infusion; change to PO metoprolol tonight for rate control; and Po amio 200mg daily -will start AC for Afib also; IV heparin later today -BP improved; off pressors now -metabolic acidosis+; on bicarb infusion now -likely afib ppt'ed by fever/sepsis -CXR 04/26 with pulm congestion -CXR tomorrow -TTE 04/26 with intact LV function, no sig valvular disease noted -Maintain MAP>65 Resp- -RA; no distress -CXR 04/26 with congestion -IV abx for ?LLL pneumonia/infiltrate -Wean Fio2 to keep sat>92% -Bronchodilators PRN, Aspiration prec ID- febrile 101, WBC normal -Anaplasmosis+ PCR -C.diff negative -blood cx 04/23 neg; repeat cultures sent this morning 04/26 -leg/strept ag neg -Cefepime (day#2), vanco (day#2); sent for peripheral smear for parasites but started on doxy 100mg IV BID GI- -chronic diarrhea; workup in past negative -c.diff neg; check o&p as per family -cont loperamide -antiemetics -Nutrition: diabetic diet -GI prophylaxis Renal- -IFEANYI improved; mkaing urine -replete IV K, phos and Mg -metabolic acidosis+; start d5w + bicarn -check bmp at 4pm -strict I/O, replete to keep K>4, Mg>2 -maguire as indicated Heme- hg stable 12 -thrombocytopenia new; no bleeding; not on AC; workup by heme being sent -DVT proph with SCD only Endo- Maintain BG<200, insulin protocol as needed Musculsk- pressure ulcer prophylaxis. oob to chair Wounds- none Nutrition- diabetic diet DVT prophylaxis: SCD only; no chem due to low plt GI prophylaxis: none Central Line: PICC today? Arterial Line: no Maguire Cathetor: no Disposition: Patient requires Critical Care/ICU for severe sepsis Patient Clinical Status: guarded Code Status: full code Total Critical Care time is 40 minutes, excluding procedures/teaching Tony Connolly MD [facility] [employer] (Electronically Signed)
[2019-04-27 15:56] LABS: RBC Parasite Smear No Parasites Seen (No Parasite)
[2019-04-27 20:23] LABS: BUN/Creatinine Ratio 18.6 (8-20); Calcium 6.7 mg/dL (8.6-10.3); EGFR African American 66.2 (>60); EGFR Non-African American 54.7 (>60); Potassium 3.5 mmol/L (3.5-5.0)
[2019-04-27 20:42] LABS: HIT ELISA < 0.075 OD (<0.400)
[2019-04-27] MEDS: Metoprolol Tartrate TAB* 25 MG PO SCH (21:54)
[2019-04-28] MEDS: Sodium Bicarbonate 8.4% IV* 150 MEQ in D5W 1000 ML BAG* 850 ML IV SCH (00:02)
[2019-04-28] MEDS: Cefepime 1 GM in Dextrose(*) 1 GM/50 ML q12h (Duplex) IV SCH ×2 (05:53→19:53)
[2019-04-28 06:19] LABS: Hematocrit 31 % (35-47); Hemoglobin 10.6 g/dL (12.0-16.0); Mean Corpuscular HGB Conc 34 g/dL (31-36); Mean Corpuscular Hemoglobin 30 pg (27-31); Mean Corpuscular Volume 87 fL (80-97); Mean Platelet Volume 12.1 fL (7.4-10.4); Platelet Count 53 10^3/uL (150-450); Red Blood Count 3.59 10^6 /uL (3.70-4.87); Red Cell Distribution Width 15 % (10-15); White Blood Count 8.5 10^3/uL (3.5-10.8)
[2019-04-28 06:29] LABS: BUN/Creatinine Ratio 17.6 (8-20); Calcium 6.8 mg/dL (8.6-10.3); EGFR African American 71.3 (>60); EGFR Non-African American 58.9 (>60); Magnesium 2.1 mg/dL (1.9-2.7); Phosphorus 1.4 mg/dL (2.5-5.0); Potassium 3.4 mmol/L (3.5-5.0)
[2019-04-28 06:39] LABS: Vancomycin Trough 16.4 mcg/mL
[2019-04-28] MEDS ORDERED: Vancomycin Trough Check NOTE FOLLOW UP ONE (08:00)
[2019-04-28] MEDS: Vancomycin(*) 750 MG in NS 0.9% 250 ML* 250 ML IVPB SCH (08:39)
[2019-04-28] MEDS: Insulin LISPRO* 1 UNITS UNIT SUBCUT SCH ×4 (08:52→21:57)
[2019-04-28] MEDS ORDERED: Potassium Phosphate IV* 30 MMOLE in NS 0.9% 250 ML* 250 ML IVPB ONE (09:32)
[2019-04-28] MEDS: DOXYcycline IV* 100 MG in NS 0.9% 250 ML* 250 ML IVPB SCH ×2 (10:20→21:57)
[2019-04-28] MEDS: Metoprolol Tartrate TAB* 25 MG PO SCH ×2 (10:24→21:57)
--- NOTE | 2019-04-28 11:45 | PN ---
Progress Note - Progress Note Date of Service: 04/28/19 Note: Progress Note -- Critical Care 24 hour events -afebrile past 24 hours; BP stable, HR stable; no further pressors required -making urine, maguire+ -awake, alert, no distress; tired this morning Tele: NSR Vitals: Vital Signs Temp 98.8 F 04/28/19 11:01 Pulse 76 04/28/19 11:01 Resp 32 04/28/19 11:01 BP 138/59 04/28/19 11:00 Pulse Ox 98 04/28/19 11:01 Intake & Output 04/27/19 04/28/19 04/28/19 18:59 06:59 18:59 Intake Total 1789.7 1475 Output Total 960 1450 140 Balance 829.7 25 -140 Weight 79 kg Intake: IV Fluids 649 130 Cefepime 50 Mg+, KPO4 302 NS 347 80 IVPB 599 550 ABX - DOXYCYCLINE 250 ABX - VANCOMYCIN 269 250 Cefepime 50 NS 330 Medicated IV 451.7 340 CC - Norepinephrine/ 48.7 Levophed D5W with bicarb 403 340 Oral 90 455 Output: Urine 45 Maguire 960 1405 140 Other: # Bowel Movements 1 Estimated Stool Amount Medium O2/Vent: 2 L Infusions: heplock Current Medications: Acetaminophen (Tylenol Tab*) 650 mg PO Q4H PRN PRN Reason: FEVER/PAIN Last Admin: 04/27/19 05:12 Dose: 650 mg Hydrocodone Bitart/Acetaminophen ([place] 5-325 Tab*) 1 tab PO Q4H PRN PRN Reason: PAIN Al Hydrox/Mg Hydrox/Simethicone (Maalox Plus*) 30 ml PO Q6H PRN PRN Reason: INDIGESTION Last Admin: 04/26/19 20:53 Dose: 30 ml Dextrose (Dextrose 50% Vial 50 Ml*) 25 ml IV PUSH .FOR FS < 60 - SS PRN PRN Reason: FS < 60 Heparin Sodium (Porcine) (Heparin Flush Picc/Ml/Cvc(*)) 1 - 3 ml FLUSH 0600, 1800 [facility]; Protocol Last Admin: 04/28/19 05:52 Dose: 1 ml Cefepime HCl (Maxipime 1 Gm In Dextrose Duplex (*)) 1 gm in 50 mls @ 100 mls/ hr IV Q12H [facility] Last Admin: 04/28/19 05:53 Dose: 100 mls/hr Doxycycline Hyclate 100 mg/ (Sodium Chloride) 250 mls @ 250 mls/hr IVPB Q12H [facility]S [facility]CLUDE 234 BEDS AT THE [facility] Last Admin: 04/28/19 10:20 Dose: 250 mls/hr Potassium Phosphate 30 mmole/ (Sodium Chloride) 260 mls @ 42 mls/hr IVPB ONCE ONE Stop: 04/28/19 15:43 Last Admin: 04/28/19 10:23 Dose: 42 mls/hr Insulin Human Lispro (Humalog*) 0 units SUBCUT ACHS [facility] 234 BEDS AT THE [facility]; Protocol Last Admin: 04/28/19 08:52 Dose: 1 units Loperamide HCl (Imodium Cap*) 2 mg PO .SEE DIRECTIONS PRN PRN Reason: DIARRHEA Last Admin: 04/26/19 23:45 Dose: 2 mg Lorazepam (Ativan Tab(*)) 0.5 mg PO BEDTIME PRN PRN Reason: ANXIETY Last Admin: 04/27/19 01:31 Dose: 0.5 mg Metoprolol Tartrate (Lopressor Tab*) 25 mg PO BID COUNTS INCLUDE 234 BEDS AT THE [facility] Last Admin: 04/28/19 10:24 Dose: 25 mg Ondansetron HCl (Zofran Inj*) 4 mg IV Q4H PRN PRN Reason: NAUSEA/VOMITING Last Admin: 04/26/19 19:33 Dose: 4 mg Zinc Oxide (Martinez's Butt Paste) 1 applic TOPICAL .AFTER EACH BM COUNTS INCLUDE 234 BEDS AT THE [facility] Last Admin: 04/26/19 21:52 Dose: 1 applic Physical Exam: Constitutional: awake, alert, no distress, no diaphoresis Head: normocephalic, atraumatic Eyes: no pallor, no icterus ENT: moist mucous membranes Neck: soft, supple, no jvd, no stridor CVS: normal rate, regular, + murmur Resp: bilateral air entry, minimal basal crackles, no wheeze, no rhonchi, no acc muscle use Abdomen/GI: soft, nontender, nondistended, BS+ Ext/Msk: warm, pulses+, no edema Skin: intact, warm Neuro: awake, alert, orientedx3, moving all extremities Labs: Laboratory Results - last 24 hr 04/26/19 04/27/19 04/27/19 05:55 06:39 12:31 WBC 6.6 RBC 3.47 L Hgb 10.6 L Hct 31 L MCV 88 MCH 31 MCHC 35 RDW 15 Plt Count 37 L MPV 11.6 H Thrombin Time 21 HIT Functional < 0.075 Sodium Potassium Chloride Carbon Dioxide Anion Gap BUN Creatinine Est GFR ( Amer) Est GFR (Non-Af Amer) BUN/Creatinine Ratio Glucose POC Glucose (mg/dL) 214 H Calcium Phosphorus Magnesium Vancomycin Trough Heparin-PF4 Ab Inhibit Not Reportable Heparin-PF4 Ab Interp Negative Heparin-PF4 Ab Comment See comment Blood Parasite Screen No parasites seen 04/27/19 04/27/19 04/28/19 17:38 19:55 05:50 WBC RBC Hgb Hct MCV MCH MCHC RDW Plt Count MPV Thrombin Time HIT Functional Sodium 131 L 134 L Potassium 3.5 3.4 L Chloride 105 106 Carbon Dioxide 19 L 22 Anion Gap 7 6 BUN 18 16 Creatinine 0.97 H 0.91 Est GFR ( Amer) 66.2 71.3 Est GFR (Non-Af Amer) 54.7 58.9 BUN/Creatinine Ratio 18.6 17.6 Glucose 227 H 193 H POC Glucose (mg/dL) 213 H Calcium 6.7 L 6.8 L Phosphorus 1.4 L Magnesium 2.1 Vancomycin Trough 16.4 Heparin-PF4 Ab Inhibit Heparin-PF4 Ab Interp Heparin-PF4 Ab Comment Blood Parasite Screen 04/28/19 04/28/19 05:50 08:47 WBC 8.5 RBC 3.59 L Hgb 10.6 L Hct 31 L MCV 87 MCH 30 MCHC 34 RDW 15 Plt Count 53 L MPV 12.1 H Thrombin Time HIT Functional Sodium Potassium Chloride Carbon Dioxide Anion Gap BUN Creatinine Est GFR ( Amer) Est GFR (Non-Af Amer) BUN/Creatinine Ratio Glucose POC Glucose (mg/dL) 194 H Calcium Phosphorus Magnesium Vancomycin Trough Heparin-PF4 Ab Inhibit Heparin-PF4 Ab Interp Heparin-PF4 Ab Comment Blood Parasite Screen Imaging: CXR 04/26 - bilateral pulm congestion+ CT chest 04/23 - hiatal hernia+, small left lower lobe basal atelectasis vs consolidation cxr 04/28 - left lung atelectasis/consolidation+ Assessment: 83y F w/pmhx of DM, HTN, chronic diarrhea, ?past Afib episode in past, chronic back pain; admitted 04/23 for complaints of nausea and fever in rehab. States she had no abd pain, but only nausea. chronic diarrhea and more watery now. She felt weak+. Family states she gets weak moving around. No swelling in legs or abd, no sig SOB/cp/palpitations. Initial CT abd/pelvis demonstrated no acute findings, CXR withotu pulm congestion. She was admitted with sepsis workup given fever 103, tachycardia 110, BP low 100s. She was given cefepime/vanco for unclear source of sepsis. This morning 04/26 she was febrile 103, new tachycardia 160s with new afib, BP 60s, given IVF bolus, sepsis protocol started, no resp distress. She is in bed now, BP upper 90s, HR 150s, awake/alert, no distress. Noted LA 3.4 this morning. -Severe Sepsis; unclear source, possible LLL pneumonia -anaplasmosis+ PCR -New onset Afib with RVR -Hypotension -Hyperlactatemia; 2/2 to rapid afib vs sepsis -thrombocytopenia -IFEANYI -metabolic acidosis -hyponatremia chronic diarrhea Plan: Neuro- -awake/alert -Delirium prec; avoid BDZ CVS- -Afib; now NSR; cont metoprolol bid for rate control; off amio -low platelets but given she has Paroxysmal afib, would need to eventually start AC for stroke prevention -cardiology outpatient followup -BP stable -TTE 04/26 with intact LV function, no sig valvular disease noted -Maintain MAP>65 Resp- -2 L NC; no distress -CXR 04/27 with left pneumonia -IV abx for LLL pneumonia/infiltrate -Wean Fio2 to keep sat>92% -Bronchodilators PRN, Aspiration prec ID- afebrile, WBC normal -Anaplasmosis+ PCR -C.diff negative -blood cx 04/23 neg; repeat cultures sent this morning 04/26 -leg/strept ag neg -Cefepime (day#3), d/c vanco, mrsa neg; cont doxy 100mg IV BID (day 3 of 14) for anaplasmosis tx GI- -chronic diarrhea; workup in past negative -c.diff neg; check o&p as per family -cont loperamide -antiemetics -Nutrition: diabetic diet -GI prophylaxis Renal- -IFEANYI improved; mkaing urine -replete IV K, phos -acidosis resolved -strict I/O, replete to keep K>4, Mg>2 -d/c maguire Heme- hg 10-11 -thrombocytopenia, plt 30s to 50s now; no bleeding; likely from sepsis/ anaplasmosis causing low count -DVT proph with SCD only Endo- Maintain BG<200, insulin protocol as needed Musculsk- pressure ulcer prophylaxis. oob to chair/ambulate Wounds- none Nutrition- diabetic diet DVT prophylaxis: SCD only; no chem due to low plt GI prophylaxis: none Central Line: PICC 04/26 Arterial Line: no Maguire Cathetor: yes; d/c today 04/28 Disposition: stable for downgrade to monitored bed Patient Clinical Status: stable Code Status: full code Tony Connolly MD [employer] (Electronically Signed)
[2019-04-28] MEDS: Furosemide TAB* 20 MG PO SCH (13:54)
[2019-04-29] MEDS: LORazepam TAB(*) 0.5 MG PO PRN (00:28)
[2019-04-29] MEDS: Cefepime 1 GM in Dextrose(*) 1 GM/50 ML q12h (Duplex) IV SCH (06:57)
[2019-04-29 07:01] LABS: Hematocrit 31 % (35-47); Hemoglobin 10.7 g/dL (12.0-16.0); Mean Corpuscular HGB Conc 35 g/dL (31-36); Mean Corpuscular Hemoglobin 30 pg (27-31); Mean Corpuscular Volume 87 fL (80-97); Mean Platelet Volume 11.1 fL (7.4-10.4); Platelet Count 89 10^3/uL (150-450); Red Blood Count 3.55 10^6 /uL (3.70-4.87); Red Cell Distribution Width 15 % (10-15); White Blood Count 8.7 10^3/uL (3.5-10.8)
[2019-04-29 07:14] LABS: Calcium 6.9 mg/dL (8.6-10.3); EGFR African American 89.1 (>60); EGFR Non-African American 73.6 (>60); Magnesium 1.9 mg/dL (1.9-2.7); Phosphorus 2.1 mg/dL (2.5-5.0); Potassium 3.4 mmol/L (3.5-5.0)
[2019-04-29] MEDS: Metoprolol Tartrate TAB* 25 MG PO SCH ×2 (09:07→21:12)
[2019-04-29] MEDS: Insulin LISPRO* 1 UNITS UNIT SUBCUT SCH ×4 (09:08→20:58)
[2019-04-29] MEDS: Furosemide TAB* 20 MG PO SCH (09:08)
[2019-04-29] MEDS: DOXYcycline IV* 100 MG in NS 0.9% 250 ML* 250 ML IVPB SCH ×2 (09:56→21:12)
--- NOTE | 2019-04-29 10:10 | PN ---
Subjective Date of Service: 04/29/19 Interval History: Only c/o is weakness, needs help to get OOB, has not been to [facility] yet. Objective Active Medications: Acetaminophen (Tylenol Tab*) 650 mg PO Q4H PRN PRN Reason: FEVER/PAIN Last Admin: 04/27/19 05:12 Dose: 650 mg Hydrocodone Bitart/Acetaminophen ([place] 5-325 Tab*) 1 tab PO Q4H PRN PRN Reason: PAIN Al Hydrox/Mg Hydrox/Simethicone (Maalox Plus*) 30 ml PO Q6H PRN PRN Reason: INDIGESTION Last Admin: 04/26/19 20:53 Dose: 30 ml Dextrose (Dextrose 50% Vial 50 Ml*) 25 ml IV PUSH .FOR FS < 60 - SS PRN PRN Reason: FS < 60 Furosemide (Lasix Tab*) 20 mg PO DAILY [facility] Last Admin: 04/29/19 09:08 Dose: 20 mg Heparin Sodium (Porcine) (Heparin Flush Picc/Ml/Cvc(*)) 1 - 3 ml FLUSH 0600, 1800 [facility]; Protocol Last Admin: 04/29/19 09:06 Dose: Not Given Doxycycline Hyclate 100 mg/ (Sodium Chloride) 250 mls @ 250 mls/hr IVPB Q12H [facility] Last Admin: 04/29/19 09:56 Dose: 250 mls/hr Insulin Human Lispro (Humalog*) 0 units SUBCUT [facility]; Protocol Last Admin: 04/29/19 09:08 Dose: 1 units Loperamide HCl (Imodium Cap*) 2 mg PO .SEE DIRECTIONS PRN PRN Reason: DIARRHEA Last Admin: 04/26/19 23:45 Dose: 2 mg Lorazepam (Ativan Tab(*)) 0.5 mg PO BEDTIME PRN PRN Reason: ANXIETY Last Admin: 04/29/19 00:28 Dose: 0.5 mg Metoprolol Tartrate (Lopressor Tab*) 25 mg PO BID [facility] Last Admin: 04/29/19 09:07 Dose: 25 mg Ondansetron HCl (Zofran Inj*) 4 mg IV Q4H PRN PRN Reason: NAUSEA/VOMITING Last Admin: 04/26/19 19:33 Dose: 4 mg Zinc Oxide (Martinez's Butt Paste) 1 applic TOPICAL .AFTER EACH BM [facility] Last Admin: 04/26/19 21:52 Dose: 1 applic Vital Signs - 8 hr 04/29/19 04/29/19 03:00 03:25 Temperature 97.9 F Pulse Rate 67 Respiratory 16 16 Rate Blood Pressure 117/52 (mmHg) O2 Sat by Pulse 96 Oximetry Oxygen Devices in Use Now: None Appearance: Alert, supine in bed. In good spirits. Looks comfortable. Respiratory: Symmetrical Chest Expansion and Respiratory Effort, Clear to Auscultation, Clear to Percussion Cardiovascular: NL Sounds; No Murmurs; No JVD, RRR, No Edema, - Extremities: No Edema, No Clubbing, Cyanosis, - Skin: No Rash or Ulcers, No Nodules or Sclerosis, - Neurological: Alert and Oriented x 3, NL Sensation Result Diagrams: 04/29/19 06:40 04/29/19 06:40 Microbiology and Other Data: Microbiology 04/23/19 17:50 Aerobic Blood Culture - Preliminary Blood Venous No Growth Day 1 04/23/19 17:49 Aerobic Blood Culture - Preliminary Blood Venous No Growth Day 1 Anaerobic Blood Culture - Preliminary No Growth Day 1 04/23/19 22:30 Nasal Screen MRSA (PCR) - Final Nasal Mrsa Not Detected 04/23/19 20:42 Legionella Urinary Antigen - Final Urine Negative Legionella Antigen Streptococcus pneumoniae Ag Screen - Final Negative S. pneumo Antigen Assess/Plan/Problems-Billing Assessment: 83 yo female with PMHx diabetes, chronic diarrhea, and chronic back pain reports with fever of unknown source. - Patient Problems (1) Anaplasmosis Current Visit: Yes Status: Acute Code(s): A77.49 - OTHER EHRLICHIOSIS SNOMED Code(s): 523686339 Comment: Positive PCR. LFT's, platelet count improved. Afebrile. Excellent clinical response to doxy. First dose IV doxy 8/ PM. Switch to po, plan total 14 days tx. Note patient aware of frequent contact with ticks, once pulled out an imbedded one. (2) Diabetes mellitus Current Visit: Yes Status: Acute Code(s): E11.9 - TYPE 2 DIABETES MELLITUS WITHOUT COMPLICATIONS SNOMED Code(s): 08557379 Comment: Resume glimepiride, sitagliptin. Continue SSI. (3) HTN (hypertension) Current Visit: Yes Status: Acute Code(s): I10 - ESSENTIAL (PRIMARY) HYPERTENSION SNOMED Code(s): 19168892 Comment: Continue metoprolol. Olmesartan on hold. (4) Muscular deconditioning Current Visit: Yes Status: Acute Code(s): R29.898 - OTH SYMPTOMS AND SIGNS INVOLVING THE MUSCULOSKELETAL SYSTEM SNOMED Code(s): 48343049 (5) Physical deconditioning Current Visit: Yes Status: Acute Code(s): R53.81 - OTHER MALAISE SNOMED Code(s): 39472153634061 Comment: PT/OT ordered. Consider STR. Status and Disposition: inpatient pending further workup to evaluate cause of fever
[2019-04-29] MEDS: CMC:Glimepiride (NF) 2 MG TAB PO SCH (13:01)
[2019-04-29 17:33] LABS: Vitamin D Total 25(OH) 45.6 ng/mL (20-50)
[2019-04-29] MEDS ORDERED: NS 0.9% 250 ML* 250 ML ONE (21:06)
[2019-04-30] MEDS: Acetaminophen TAB* 325 MG PO PRN (03:43)
[2019-04-30] MEDS: LORazepam TAB(*) 0.5 MG PO PRN ×2 (04:38→23:49)
[2019-04-30] MEDS ORDERED: Vancomycin Trough Check NOTE FOLLOW UP ONE (07:30)
[2019-04-30] MEDS: Insulin LISPRO* 1 UNITS UNIT SUBCUT SCH (08:32)
[2019-04-30] MEDS: Furosemide TAB* 20 MG PO SCH (09:53)
[2019-04-30] MEDS: Cholecalciferol TAB* 1000 UNITS PO SCH (09:53)
[2019-04-30] MEDS: CMC:Glimepiride (NF) 2 MG TAB PO SCH (09:53)
[2019-04-30] MEDS: Metoprolol Tartrate TAB* 25 MG PO SCH (09:53)
[2019-04-30] MEDS: CMC:SitaGLIPtin (NF) 100 MG TAB PO SCH (09:53)
[2019-04-30] MEDS: DOXYcycline CAP(*) 100 MG PO SCH ×2 (09:53→20:45)
--- NOTE | 2019-04-30 10:08 | PN ---
Subjective Date of Service: 04/30/19 Interval History: Baig placed yesterday, possibly for skin breakdown? No significant overnight events. Patient reports that her weakness is somewhat improved. Her appetite is returning but not fully. Denies other complaints. Objective Active Medications: Acetaminophen (Tylenol Tab*) 650 mg PO Q4H PRN PRN Reason: FEVER/PAIN Last Admin: 04/30/19 03:43 Dose: 650 mg Cholecalciferol (Vitamin D Tab*) 1,000 units PO DAILY [facility] Last Admin: 04/30/19 09:53 Dose: 1,000 units Doxycycline Hyclate (Vibramycin Cap(*)) 100 mg PO BID [facility] Last Admin: 04/30/19 09:53 Dose: 100 mg Furosemide (Lasix Tab*) 20 mg PO DAILY [facility] Last Admin: 04/30/19 09:53 Dose: 20 mg Heparin Sodium (Porcine) (Heparin Flush Picc/Ml/Cvc(*)) 1 - 3 ml FLUSH 0600, 1800 [facility]; Protocol Last Admin: 04/30/19 05:25 Dose: 3 ml Loperamide HCl (Imodium Cap*) 2 mg PO .SEE DIRECTIONS PRN PRN Reason: DIARRHEA Last Admin: 04/26/19 23:45 Dose: 2 mg Lorazepam (Ativan Tab(*)) 0.5 mg PO BEDTIME PRN PRN Reason: ANXIETY Last Admin: 04/30/19 04:38 Dose: 0.5 mg Metoprolol Tartrate (Lopressor Tab*) 25 mg PO BID [facility] Last Admin: 04/30/19 09:53 Dose: 25 mg Ondansetron HCl (Zofran Inj*) 4 mg IV Q4H PRN PRN Reason: NAUSEA/VOMITING Last Admin: 04/26/19 19:33 Dose: 4 mg Sitagliptin Phosphate (Januvia (Nf)) 100 mg PO QAM [facility]; Protocol Last Admin: 04/30/19 09:53 Dose: 100 mg Zinc Oxide (Martinez's Butt Paste) 1 applic TOPICAL .AFTER EACH BM [facility] Last Admin: 04/26/19 21:52 Dose: 1 applic Vital Signs - 8 hr 04/30/19 04/30/19 04/30/19 03:10 04:38 07:19 Temperature 98.3 F Pulse Rate 74 Respiratory 16 20 16 Rate Blood Pressure 145/60 (mmHg) O2 Sat by Pulse 96 Oximetry 04/30/19 07:52 Temperature 97.3 F Pulse Rate 72 Respiratory 16 Rate Blood Pressure 140/54 (mmHg) O2 Sat by Pulse 96 Oximetry Oxygen Devices in Use Now: None Appearance: tired appearing elderly woman in NAD, sitting in chair Eyes: No Scleral Icterus Ears/Nose/Mouth/Throat: Clear Oropharnyx, Mucous Membranes Moist Respiratory: Symmetrical Chest Expansion and Respiratory Effort, Clear to Auscultation Cardiovascular: NL Sounds; No Murmurs; No JVD, RRR Extremities: No Edema Skin: No Rash or Ulcers Neurological: Alert and Oriented x 3 Result Diagrams: 04/29/19 06:40 04/29/19 06:40 Microbiology and Other Data: Microbiology 04/23/19 17:50 Aerobic Blood Culture - Preliminary Blood Venous No Growth Day 1 04/23/19 17:49 Aerobic Blood Culture - Preliminary Blood Venous No Growth Day 1 Anaerobic Blood Culture - Preliminary No Growth Day 1 04/23/19 22:30 Nasal Screen MRSA (PCR) - Final Nasal Mrsa Not Detected 04/23/19 20:42 Legionella Urinary Antigen - Final Urine Negative Legionella Antigen Streptococcus pneumoniae Ag Screen - Final Negative S. 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 Course c/b septic shock requiring pressors, transferred to floors 04/28 and working with PT. - Patient Problems (1) Anaplasmosis Comment: Positive PCR. LFT's, platelet count improving. Afebrile since starting doxy. - cont doxy [04/26 - ], today is first day of PO - pt educated on tick bites (2) Diabetes mellitus Comment: A1c 8.3% earlier this year. - low insulin requirements while admitted so will stop insulin with fingersticks - cont home sitagliptin, will initiate metformin (3) HTN (hypertension) Comment: Continue metoprolol. Olmesartan on hold. (4) Physical deconditioning Comment: PT/OT ordered. Consider STR. (5) Thrombocytopenia Comment: Likely due to anaplasmosis. - improving on doxycycline - apprecaite heme input Status and Disposition: Pending PT eval, possibly will go to [facility].
[2019-04-30 10:12] LABS: Urine Appearance Clear; Urine Bilirubin Negative (Negative); Urine Blood Negative (Negative); Urine Color Yellow; Urine Glucose 3+(>=500 mg/dL) (Negative); Urine Ketones Trace (Negative); Urine Nitrite Negative (Negative); Urine Protein Negative (Negative); Urine Specific Gravity 1.007 (1.010-1.030); Urine Urobilinogen Negative (Negative)
[2019-04-30 10:13] LABS: Vancomycin Trough 8.3 mcg/mL
[2019-04-30 10:43] LABS: Calcium 7.2 mg/dL (8.6-10.3); Magnesium 1.7 mg/dL (1.9-2.7); Potassium 3.3 mmol/L (3.5-5.0)
[2019-04-30 10:49] LABS: BUN/Creatinine Ratio 18.2 (8-20); EGFR African American 86.4 (>60); EGFR Non-African American 71.4 (>60)
[2019-04-30] MEDS ORDERED: Potassium Chloride* LIQUID 20 MEQ/15 ML UDC PO ONE (10:54)
[2019-04-30] MEDS ORDERED: metFORMIN* 500 MG TAB PO SCH (11:00)
[2019-04-30] MEDS ORDERED: Potassium Phosphate IV* 10 MMOLE in NS 0.9% 250 ML* 250 ML IVPB ONE (11:15)
[2019-04-30] MEDS: Magnesium Sulfate 2 GM IV* 2 GM/50 ML BAG IVPB ONE ×2 (11:57→14:56)
[2019-04-30 16:49] LABS: BUN/Creatinine Ratio 17.6 (8-20); Calcium 7.5 mg/dL (8.6-10.3); EGFR African American 77.1 (>60); EGFR Non-African American 63.7 (>60); Magnesium 1.9 mg/dL (1.9-2.7)
[2019-04-30] MEDS ORDERED: Metoprolol Succinate XL TAB* 50 MG PO SCH (21:00)
[2019-05-01] MEDS: Acetaminophen TAB* 325 MG PO PRN (04:17)
[2019-05-01 07:55] LABS: Hematocrit 32 % (35-47); Hemoglobin 11.2 g/dL (12.0-16.0); Mean Corpuscular HGB Conc 35 g/dL (31-36); Mean Corpuscular Hemoglobin 30 pg (27-31); Mean Corpuscular Volume 86 fL (80-97); Mean Platelet Volume 9.4 fL (7.4-10.4); Platelet Count 214 10^3/uL (150-450); Red Blood Count 3.74 10^6 /uL (3.70-4.87); Red Cell Distribution Width 15 % (10-15); White Blood Count 9.1 10^3/uL (3.5-10.8)
[2019-05-01] MEDS: DOXYcycline CAP(*) 100 MG PO SCH (08:13)
[2019-05-01] MEDS: CMC:SitaGLIPtin (NF) 100 MG TAB PO SCH (08:13)
[2019-05-01] MEDS: Cholecalciferol TAB* 1000 UNITS PO SCH (08:13)
[2019-05-01 08:14] LABS: BUN/Creatinine Ratio 16.2 (8-20); Calcium 7.2 mg/dL (8.6-10.3); EGFR African American 90.5 (>60); EGFR Non-African American 74.8 (>60); Magnesium 1.9 mg/dL (1.9-2.7); Potassium 3.8 mmol/L (3.5-5.0)
[2019-05-01] MEDS ORDERED: Potassium Chlor TAB* 20 MEQ TAB.ER PO ONE (08:17)
[2019-05-01] MEDS ORDERED: Magnesium Sulfate 1 GM IV* 1 GM/100 ML BAG IV ONE (08:17)
--- NOTE | 2019-05-01 08:19 | PN ---
Subjective Date of Service: 05/01/19 Interval History: Platelets now normal. PT no longer recommending STR, as pt has been able to walk in the halls and is independent in transfers. Pt reporting weakness that continues to improve. Appetite back. Able to urinate after Baig removed. Discussed with daughter that patient is ready to go home and will have home PT referral. Objective Active Medications: Acetaminophen (Tylenol Tab*) 650 mg PO Q4H PRN PRN Reason: FEVER/PAIN Last Admin: 05/01/19 04:17 Dose: 650 mg Cholecalciferol (Vitamin D Tab*) 1,000 units PO DAILY [facility] Last Admin: 05/01/19 08:13 Dose: 1,000 units Doxycycline Hyclate (Vibramycin Cap(*)) 100 mg PO BID [facility] Last Admin: 05/01/19 08:13 Dose: 100 mg Loperamide HCl (Imodium Cap*) 2 mg PO .SEE DIRECTIONS PRN PRN Reason: DIARRHEA Last Admin: 04/26/19 23:45 Dose: 2 mg Lorazepam (Ativan Tab(*)) 0.5 mg PO BEDTIME PRN PRN Reason: ANXIETY Last Admin: 04/30/19 23:49 Dose: 0.5 mg Metoprolol Succinate (Toprol Xl Tab*) 50 mg PO BEDTIME [facility] Last Admin: 04/30/19 20:46 Dose: 50 mg Ondansetron HCl (Zofran Inj*) 4 mg IV Q4H PRN PRN Reason: NAUSEA/VOMITING Last Admin: 04/26/19 19:33 Dose: 4 mg Sitagliptin Phosphate (Januvia (Nf)) 100 mg PO QAM [facility]; Protocol Last Admin: 05/01/19 08:13 Dose: 100 mg Zinc Oxide (Martinez's Butt Paste) 1 applic TOPICAL .AFTER EACH BM [facility] Last Admin: 04/26/19 21:52 Dose: 1 applic Vital Signs - 8 hr 05/01/19 05/01/19 02:16 03:15 Temperature 97.4 F Pulse Rate 74 Respiratory 16 20 Rate Blood Pressure 135/40 (mmHg) O2 Sat by Pulse 94 Oximetry Oxygen Devices in Use Now: None Appearance: well appearing elderly woman in NAD Eyes: No Scleral Icterus Ears/Nose/Mouth/Throat: Clear Oropharnyx, Mucous Membranes Moist Respiratory: Clear to Auscultation Cardiovascular: RRR Abdominal: NL Sounds; No Tenderness; No Distention Extremities: No Edema Skin: No Rash or Ulcers Neurological: Alert and Oriented x 3 Result Diagrams: 05/01/19 07:26 05/01/19 07:26 Microbiology and Other Data: Microbiology 04/23/19 17:50 Aerobic Blood Culture - Preliminary Blood Venous No Growth Day 1 04/23/19 17:49 Aerobic Blood Culture - Preliminary Blood Venous No Growth Day 1 Anaerobic Blood Culture - Preliminary No Growth Day 1 04/23/19 22:30 Nasal Screen MRSA (PCR) - Final Nasal Mrsa Not Detected 04/23/19 20:42 Legionella Urinary Antigen - Final Urine Negative Legionella Antigen Streptococcus pneumoniae Ag Screen - Final Negative S. 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 Course c/b septic shock requiring pressors, transferred to floors 04/28 and working with PT. - Patient Problems (1) Anaplasmosis Comment: Positive PCR. LFT's, platelet count improving. Afebrile since starting doxy. - cont doxy PO [04/26 - 05/09] - pt educated on tick bites (2) Diabetes mellitus Comment: A1c 8.3% earlier this year. - low insulin requirements while admitted so will stop insulin with fingersticks - cont home sitagliptin (3) HTN (hypertension) Comment: Continue metoprolol. Olmesartan on hold. (4) Physical deconditioning Comment: home PT referred (5) Thrombocytopenia Comment: Likely due to anaplasmosis. Resolved after doxycycline. Status and Disposition: Home today.
[2019-05-01 08:43] LABS: Phosphorus 2.4 mg/dL (2.5-5.0)
[2019-05-01 15:25] VITALS: BP 141/63
--- NOTE | 2019-05-01 15:25 | DS ---
CC: Dr. Deacon Webb; Dr. Morgan * DISCHARGE SUMMARY: DATE OF ADMISSION: 04/23/19 DATE OF DISCHARGE: 05/01/19 PRIMARY CARE PHYSICIAN: Dr. Deacon Webb. 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 SECONDARY DIAGNOSES: 1. Diabetes. 2. Chronic diarrhea. 3. Hypertension. CONSULTS: Dr. Morgan of Hematology. DISCHARGE MEDICATIONS: 1. Doxycycline 100 mg twice a day for 8 more days. 2. Metoprolol succinate 50 mg nightly. 3. Sitagliptin 100 mg daily. 4. Glimepiride 4 mg daily. 5. Lorazepam 0.5 mg at bedtime as needed for sleep. 6. [place] 10/325 every 6 hours as needed for pain. 7. Ibuprofen 200 mg twice a day as needed for pain. 8. Loperamide 2 mg 3 times a day as needed for diarrhea. 9. Probiotic with prebiotic supplement. 10. Vitamin B complex and D3 supplements. HISTORY OF PRESENT ILLNESS: Ms. Hanson is an 83-year-old woman with diabetes and hypertension, chronic diarrhea, who presented to the emergency department with 3 days of abdominal discomfort and nausea. She states these symptoms began gradually 3 days ago when she first woke up and she decided to try to rest but was not able to eat and became progressively weaker. She went to her primary care physician's office where she was noted to be febrile and was sent to the emergency department for further evaluation. The patient states she did feel feverish at home, but did not measure her temperature. She denied vomiting. She has a history of chronic diarrhea, which has not changed recently. She has had abdominal bloating but without recent travel. No recent skin changes. The patient does report that she spends a lot of time outdoors and gardening and has had tick bites in the past. HOSPITAL COURSE: The patient was admitted to the medical service and initially treated for possible community-acquired pneumonia, although it was thought that her fever was possibly of unknown origin. The patient was noted to have thrombocytopenia with hepatitis. Eventually, the patient's tick panel resulted positive for anaplasmosis, but before initiation of doxycycline, the patient became more ill through her hospitalization. While on cefepime and vancomycin for fever of unknown origin, she continued to spike fevers notably to 103 with tachycardia and hypotension. She was given IV fluid bolus and was transferred to the ICU, where she experienced continued fevers, hypoxia, and low blood pressure, and was briefly on Levophed. Around this time, her PCR was positive for anaplasmosis and she was started on doxycycline on 04/26/19. Within 24 hours, the patient had defervesced and had no recurrence of fever and was able to have her Levophed discontinued. The patient began to gradually feel better and was transferred out of the ICU. Her initial platelets of mid 100s improved by day of discharge to 214. The patient was able to come off IV fluids and she was tolerating oral intake well. She was evaluated by PT who initially recommended placement in short-term rehab; however, by day of discharge, the patient was able to walk around the hallway and transfer independently, so she was deemed safe for discharge home with home PT. This plan was explained to the patient and daughter who are amenable. A 10-point review of systems on day of discharge was significant only for weakness, which has been steadily improving throughout the hospitalization. PERTINENT STUDIES AND LABS: Hemoglobin on discharge 11.2 with MCV 86. Platelets 214 from paty of 37. Anaplasma DNA PCR positive. Blood cultures negative and urine antigens for legionella and Streptococcus pneumoniae were both negative. Abdomen and pelvis CT with no acute findings. Healing fractures in left ribs 7 through 9 but not acute. Large hiatal hernia. Post cholecystectomy and hysterectomy. Chest CT with moderate to large hiatal hernia, which appears stable and new dependent consolidation in the left lower lobe base suspicious for atelectasis but cannot exclude a component of pneumonitis. TTE with LV cavity size mildly reduced, wall thickness normal, systolic function is hyperdynamic with estimated EF 70% to 75% with normal wall motion. DISCHARGE PLAN: The patient was discharged to follow up closely with her primary care physician where she should have ongoing monitoring of her symptoms and labs. Her most significant medication change is addition of doxycycline to complete a total of 14 days for treatment of anaplasmosis. Her blood pressure throughout hospitalization were well controlled on metoprolol succinate alone and she had not been given her home ARB. She is to eat a healthy diet, low in processed foods, and resume activity as tolerated with home physical therapy referral. Her and her daughter were educated on return precautions which included, but are not limited to, recurrence of fever, nausea, abdominal pain, and lightheadedness. DISPOSITION: To home. CONDITION: Improved. TIME SPENT: Approximately 60 minutes was spent on discharge of this patient, more than half of which was spent with care coordination or at bedside for interview and exam. [id number]/[facility] #: [id number] ARLINE
[2019-05-02] MEDS ORDERED: CMCS:Glimepiride (NF) 2 MG TAB PO SCH (08:30)
== END 2019-05-01 15:37 | disposition home health service (06) | DRG 871 ==
LOC: ED 16:16 → MED 22:04 → OBSVTOIN 04-24 11:00 → ICU 04-26 06:51 → MEDTELE 04-28 12:53
PROVIDERS: ADMIT Internal Medicine; ATTEND Internal Medicine
PROC: 05H533Z Insertion of Infusion Device into Right Subclavian Vein, Percutaneous Approach (ICD-10-PCS; principal; 2019-04-26)
DX: A41.9 Sepsis, unspecified organism (principal); J18.9 Pneumonia, unspecified organism; A77.49 Other ehrlichiosis; N17.9 Acute kidney failure, unspecified; E87.2 Acidosis; E87.1 Hypo-osmolality and hyponatremia; J98.11 Atelectasis; R65.20 Severe sepsis without septic shock; I95.9 Hypotension, unspecified; D69.6 Thrombocytopenia, unspecified; I48.0 Paroxysmal atrial fibrillation; E11.9 Type 2 diabetes mellitus without complications; K75.9 Inflammatory liver disease, unspecified; E87.6 Hypokalemia; R09.02 Hypoxemia; I10 Essential (primary) hypertension; K44.9 Diaphragmatic hernia without obstruction or gangrene; M54.9 Dorsalgia, unspecified; K52.9 Noninfective gastroenteritis and colitis, unspecified; R41.0 Disorientation, unspecified; Z96.619 Presence of unspecified artificial shoulder joint; Z83.3 Family history of diabetes mellitus; Z87.19 Personal history of other diseases of the digestive system; Z79.84 Long term (current) use of oral hypoglycemic drugs; Z79.899 Other long term (current) drug therapy; Z79.1 Long term (current) use of non-steroidal anti-inflammatories (NSAID); Z80.3 Family history of malignant neoplasm of breast
CPT/HCPCS: 36415; 71045; 71250; 74177; 80048; 80053; 80074; 80202; 81003; 81015; 82306; 83605; 83690; 83735; 84100; 85025; 85027; 85060; 85379; 85384; 85610; 85652; 85670; 85730; 86022; 86140; 86618; 87015; 87040; 87045; 87046; 87086; 87207; 87493; 87641; 87798; 87899; 93306; 99284; A9270-GY; C1751; G8978-GP-CM; G8979-GP-CJ; G8987-GO-CK; G8988-GO-CI; G8989-GO-CH; J0282; J0456; J0692; J0696; J1644; J2405; J2543; J3370; J3475; J7060; Q9967

== ENCOUNTER → 2019-09-27 09:56 | Day surgery (SDC) | payer MEDICARE, OTHER ==
[~2019-09-27 09:56] MED LIST changes: -Acetaminophen TAB* 325 MG PO PRN; +Atorvastatin* 20 MG TAB PO SCH; -Buffered Lidocaine 1% SYR 3ML* 3 ML/SYR SYRINGE INTRADERM ONE; -Buffered Lidocaine 1% SYR 3ML* 3 ML/SYR SYRINGE ONE; -Cyclopentolate 1% OPTH.SOL* 2 ML BTL ONE; -Flurbiprofen 0.03% OPTH.SOL* 2.5 ML BTL ONE; +Heparin 2 UNITS/ML IVPREMIX* 2,000 ML IV ONE; +Heparin(*) 1000 UNIT/ML 10 ML VIAL CATH LAB IV ONE; +Iodixanol 320 (CONTRAST) 100 ML SDV ONE; +Isosorbide Mononitrate ER TAB* 30 MG PO SCH; +Lidocaine 1% INJ* 10 MG/ML 30 ML SDV ONE; -Lidocaine 1% MPF* 2 ML VIAL ONE; -Midazolam* 1 MG/ML 2 ML VIAL (2 MG) ONE; +Midazolam* 1 MG/ML 5 ML VIAL (5 MG) ONE; +NS 0.9% 1000 ML** 1,000 ML IV SCH; -Neomycin/Polymy/Dex OPHTH.OIN* 3.5 GM ONE; -Phenylephrine 2.5% OPTH.SOL* 2 ML BTL ONE; -Tetracaine 0.5% OPTH.SOL 4 ML* 1 DROP BTL ONE; -Tropicamide 1% OPTH.SOL* BTL ONE; +VERAPAMIL 2.5 MG/ML 2 ML VIAL ** 5 mg/2 ml ONE; +diPHENhydraMINE PO* 25 MG ONE; +nitroGLYCERIN DRIP* 25,000 MCG/250 ML BTL ONE
[2019-09-27 10:29] LABS: ABS Basophils 0.1 10^3/ul (0-0.2); ABS Eosinophils 0.1 10^3/ul (0-0.6); ABS Lymphocytes 1.1 10^3/ul (1.0-4.8); ABS Monocytes 0.6 10^3/ul (0-0.8); ABS Neutrophils 5.4 10^3/ul (1.5-7.7); Eosinophil % 1.4 %; Hematocrit 42 % (35-47); Hemoglobin 14.3 g/dL (12.0-16.0); Lymphocyte % 15.3 %; Mean Corpuscular HGB Conc 34 g/dL (31-36); Mean Corpuscular Hemoglobin 30 pg (27-31); Mean Corpuscular Volume 86 fL (80-97); Mean Platelet Volume 8.6 fL (7.4-10.4); Platelet Count 205 10^3/uL (150-450); Red Blood Count 4.86 10^6 /uL (3.70-4.87); Red Cell Distribution Width 15 % (10-15); White Blood Count 7.4 10^3/uL (3.5-10.8)
[2019-09-27 10:41] LABS: Activated Partial Thrombo Time 30.5 seconds (26.0-38.0); INR 0.94 (0.82-1.09)
[2019-09-27 10:45] LABS: BUN/Creatinine Ratio 26.5 (8-20); Calcium 9.4 mg/dL (8.6-10.3); EGFR African American 62.5 (>60); EGFR Non-African American 51.6 (>60); Potassium 3.9 mmol/L (3.5-5.0)
[2019-09-27 17:06] VITALS: BP 148/72
--- NOTE | 2019-09-28 19:02 | CATH ---
CC: VARUN Porter; Dr. Diamante Ng at [facility] CARDIAC CATHETERIZATION REPORT: DATE OF PROCEDURE: 09/27/19 INDICATION FOR THE PROCEDURE: Asked by Dr. Ng to perform diagnostic cardiac catheterization on the patient in light of symptoms of chest discomfort with history of reported abnormal nuclear study raising question of possible anterior wall ischemia. PROCEDURES: Coronary arteriography, left heart catheterization, left ventriculography. CONSENT: The patient was interviewed and examined in the holding area, where the risks and benefits were explained. She understood and wished to proceed. APPROACH UTILIZED: In the holding area, the right radial artery was assessed for size and found to be acceptable, and as such, this was the approach utilized. PRE-CARDIAC CATHETERIZATION LABORATORY RESULTS: Hemoglobin and hematocrit of 14.3 and 42 with a platelet count of 205,000. BUN and creatinine of 27 and 1.0. Sodium 135, potassium 3.9, chloride 104, bicarb 21. EQUIPMENT UTILIZED: 1. Right radial artery sheath was a 6-Haitian Glidesheath. 2. The diagnostic coronary catheters included a TIG-4 5-Haitian catheter, a FL3.5 curve left coronary catheter, a 5-Haitian multipurpose 1 catheter, and finally a 6- Haitian EBU 3 curve catheter for the left coronary artery. The left heart catheterization catheter was a 5-Haitian PIG short radial catheter. The diagnostic guidewires utilized were a 260 length Dominguez guidewire and a Wholey 145 cm length wire. MEDICATIONS GIVEN DURING THE PROCEDURE: Included radial artery cocktail of 3000 units of heparin, 300 mcg of nitroglycerin, and 3 mg of verapamil which were given as soon as the sheath was placed. 1% lidocaine was used for local anesthesia and 150 mcg of nitroglycerin was given intraarterially in the sheath during the procedure. DESCRIPTION OF PROCEDURE: The patient was brought to the cardiovascular laboratory where a formal time-out was performed. She was prepped and draped in sterile fashion, and under ultrasound guidance, the right radial artery was cannulated and a sheath was placed. The radial artery cocktail was given. The TIG-4 catheter was utilized to inject the right coronary catheter. Because of a high takeoff for the left coronary artery, eventually a 6-Haitian EBU 3 curve guide catheter had to be used to obtain left coronary angiography. Following this, left heart catheterization was performed and left ventriculography was performed utilizing a total of 24 cc of Visipaque dye at a rate of 12 cc per second. The catheter was pulled back across the aortic valve to recheck gradient. At the end of the case, the catheter and sheath were removed, and hemostasis was obtained with a Vasc Band. The reverse Barbeau was was a B. The total contrast used was 124 cc of Visipaque dye. The radiation exposure included 16.3 minutes of fluoro time. The air kerma radiation was 1121 mGy. The DAP radiation was 7505 microgray per meter squared. RESULTS: HEMODYNAMIC DATA: Left heart catheterization revealed central aortic pressure of 184/74 with a mean of 119. Left ventricular pressure was 190 over left ventricular end diastolic pressure of 10. LEFT VENTRICULOGRAPHY: Performed in the GALDAMEZ projection revealed symmetrical contraction of the left ventricle with no focal wall motion abnormalities, overall EF grossly estimated at 60%. Of note, the injection was somewhat suboptimal in nature due to the catheter being more proximally placed in the left ventricle. CORONARY ARTERIOGRAPHY: A. Right coronary artery - a dominant vessel supplying the PDA and 2 small posterior left ventricular branches in addition to 3 acute marginal branches. There was mild proximal narrowing in the right coronary artery of 25% to 30%. B. Left coronary artery: 1. Left main - widely patent. There was no significant disease seen. 2. Left anterior descending artery. The left anterior descending artery had a caliber change in its proximal to mid portion of 45% to 50%. In the mid segment of the left anterior descending artery, there was a 35% obstruction seen at the takeoff of a mid diagonal branch. The mid diagonal branch had an ostial narrowing that appeared to be 65% to 70% in a small caliber vessel. The LAD continued to the apical region and mildly on to the distal inferior wall. The ostium in the LAD had a 25% to 30% narrowing seen. 3. Circumflex artery - a nondominant vessel supplying a high first obtuse marginal branch followed by a mid obtuse marginal branch that had 45% to 50% narrowing noted in its proximal portion. The circumflex ended in a low- lying obtuse marginal branch, which had no significant disease. OVERALL ASSESSMENT: Overall, normal left ventricular systolic function with mild to moderate coronary artery disease, the most significant of which appeared to be tapering of the proximal to mid LAD of 45% to 50% and the ostium of the small caliber mid diagonal branch ( a vessel too small for percutaneous intervention and subtending a small area of myocardium). There was disease in the mid LAD as well, again noncritical in nature. The second obtuse marginal branch had proximal disease as well. Hyepertension was noted. At this point in time, would recommend continued aggressive medical management. Currently, the patient is not on any type of statin therapy, and as such, we will institute atorvastatin 20 mg daily. We will also start her on Imdur 30 mg daily in addition to her Cardizem, which she is placed on by Dr. Ng at 30 mg 3 times a day, most likely that could be easily increased as well. Of note, in light of her hypertension and her diabetes, consideration could be made towards starting an ROMULO inhibitory, but I would leave that to her primary care physician , Radha Wallis, or Dr. Ng when he sees her back in followup. She will have a wound check by Dr. Rob Lopez next week. This information was shared with Dr. Ng. [id number]/[facility] #: [id number] [facility]PITALRomeo
== END | disposition home or self-care (01) ==
LOC: CHICATH 09:56
PROVIDERS: ATTEND Internal Medicine Cardiovascular Disease
DX: I25.10 Atherosclerotic heart disease of native coronary artery without angina pectoris (principal); R07.9 Chest pain, unspecified; R06.02 Shortness of breath; I10 Essential (primary) hypertension; R94.39 Abnormal result of other cardiovascular function study; E11.9 Type 2 diabetes mellitus without complications; Z79.84 Long term (current) use of oral hypoglycemic drugs; M81.0 Age-related osteoporosis without current pathological fracture; M19.90 Unspecified osteoarthritis, unspecified site; E66.9 Obesity, unspecified; R00.2 Palpitations
CPT/HCPCS: 36415; 80048; 85025; 85610; 85730; 93458; A9270-GY; C1887; J1644; J2250; J3010